=== PATIENT | male | born 1960 | race Hispanic/Latino ===

== ENCOUNTER 2018-04-15 14:54 | Inpatient (IN) ==
[2018-04-15] MEDS ORDERED: ONDANSETRON 4 MG/2 ML VIAL IVP ONE (15:26)
[2018-04-15] MEDS ORDERED: PANTOPRAZOLE IV 40 MG VIAL IVP ONE (15:26)
[2018-04-15] MEDS ORDERED: Sodium Chloride 0.9% 1,000 ML PRIMARY IV ONE ×2 (15:26→16:09)
[2018-04-15] MEDS ORDERED: HYDROmorphone 2 MG/1 ML IVP ONE (15:28)
[2018-04-15 15:53] LABS: BUN/CREATININE RATIO 19.37 (6-20); SERUM ALBUMIN 5.1 g/dL (3.5-4.8)
[2018-04-15 15:58] LABS: BASOPHILS # (AUTO) 0.02 10*3/UL; BASOPHILS % (AUTO) 0.1 % (0-1); EOSINOPHILS # (AUTO) 0 10*3/UL; EOSINOPHILS % (AUTO) 0 % (0-8); Hematocrit [HCT] 49.6 % (42.0-52.0); Hemoglobin [HGB] 17.4 g/dL (14.0-18.0); LYMPHOCYTES # (AUTO) 1.08 10*3/uL; MEAN CORPUSCULAR HEMOGLOBIN 28.9 PG (27-31); MEAN CORPUSCULAR HGB CONC 35.1 g/dL (33-37); MEAN CORPUSCULAR VOLUME 82.4 FL (80-90); MEAN PLATELET VOLUME 9.1 FL (7.4-12.2); MONOCYTES # (AUTO) 1.07 10*3/UL (0.3-0.8); MONOCYTES % (AUTO) 4.7 % (5-15); NEUTROPHILS # (AUTO) 20.44 10*3/UL; NEUTROPHILS % (AUTO) 89.9 % (50-80); RED BLOOD COUNT 6.02 10^6/uL (4.70-6.10)
[2018-04-15 16:24] LABS: PLATELET MORPHOLOGY COMMENT NORMAL MORPHOLOGY (NORM); RBC MORPHOLOGY COMMENT NORMAL MORPHOLOGY (NORM); WBC MORPHOLOGY COMMENT SEE COMMENTS (NORM)
[2018-04-15] MEDS ORDERED: Ertapenem Inj 1 GM in Sodium Chloride 0.9% 100 ML IV ONE (16:40)
--- NOTE | 2018-04-15 16:57 | DI ---
CT ABDOMEN SCAN WITHOUT IV CONTRAST, 04/15/2018 4:06 PM : Clinical History: Abdominal pain. Previous Exam: None at this facility. Scans are performed from the lower lung bases through the liver and kidneys without IV contrast. Sagi ttal and coronal reformatted images are generated. No oral or rectal contrast was ordered. Comment: This study was initially ordered with IV contrast but the patient's eGFR was 45 mL per minut e indicating significant renal impairment. The exam was changed to a study without IV contrast. The lung bases are clear. The liver is normal. The gallbladder is markedly contracted and grossly nor mal. There is enlargement of the head of the pancreas with inflammatory/infiltrative change surroundi ng the head. The body and tail of the pancreas are normal. Inflammatory/infiltrative change extends t oward the right lateral aspect of the abdomen and there is fluid in Morison this pouch. The second pa rt of the duodenum is abnormally distended and may actually show mucosal inflammatory change. Both ki dneys are normal in size, shape, position and contour. There is no hydronephrosis or hydroureter. No renal or ureteral calculi are present. There are no abnormal retrocrural or periaortic nodes. READIN. The pancreatic head is enlarged and shows peripancreatic inflammatory/infiltrative change. The linda dy and tail of the pancreas are normal. There are no pancreatic calcifications and there is no dilata tion of the pancreatic duct. Inflammatory/infiltrative change is associated with the duodenum and in the mesenteric fat surrounding the hepatic flexure. There is a small amount of fluid in Morison's doris ch and in the right gutter. The differential is between focal pancreatitis involving the head of the pancreas with associated inflammatory change of the duodenum versus a process in the duodenum such as a duodenal ulcer that eroded into the head of the pancreas causing focal pancreatitis. A mass within the head of the pancreas cannot entirely be excluded. 2. The remainder of the examination is normal. CT PELVIS SCAN WITHOUT IV CONTRAST, 04/15/2018 4:06 PM : Clinical History: See above. Previous Exam: None. Scans are performed from the inferior margin of the liver and kidneys to the symphysis pubis without IV contrast. Scans through the lower abdomen and pelvis show no masses or abnormal fluid collections. There is no adenopathy. The appendix is normal. The small bowel, terminal ileum, and ileocecal valve are normal. The colon is also normal. There is a very small umbilical hernia through which only mesenteric fat thomas s herniated. READING: Normal CT pelvis scan without IV contrast.
--- NOTE | 2018-04-15 18:15 | PDOC ---
HPI - History of Present Illness Date of Service: 04/15/18 Time of Service: 18:00 Chief Complaint: Abdominal pain and vomiting of one day duration History of Present Illness: This is a 58 years old male with medical history significant for history of hypertension and hyperlipidemia who came into the hospital with history of abdominal pain and vomiting that started today. The pain is severe felt in the mid abdomen and goes to the back. In addition he did vomit once. Because of the symptoms he came into the ER. Evaluation in the ER revealed pancreatitis was given fluids and was admitted. He feels better now compared to when he came in he rates his pain maybe 1 out of 10. He is not nauseated anymore. There is no history of diarrhea. He said he was feeling fine until today. Patient is a and he does understand Sinhala but the his daughter also is needed at times for translation. Past Medical History Medical History: 1. Hypertension. 2. Hyperlipidemia Surgical History: No surgeries before Family History: Reviewed an Not Pertinent Past Social History: He smokes few cigarettes a day, he said he used to drink and quit about 3 months ago and nothing since then. Denying drug usage. He lives in [place]. Tobacco Use: Light Tobacco Smoker Do you dip or chew tobacco: No In the Past 12 Months, Have Used or Abuse Any of the Following Substance: None Alcohol Use: None Medication / Allergies Home Medications: Home Medications 3 Medication Instructions Recorded Confirmed Type Aspirin 81 mg PO DAILY 04/15/18 04/15/18 History Lisinopril/Hydrochlorothiazide 1 tab PO DAILY 04/15/18 04/15/18 History [Lisinopril-Hctz 20-25 mg Tab] Simvastatin 20 mg PO DAILY 04/15/18 04/15/18 History Allergies/Adverse Reactions: Allergies 3 Allergy/AdvReac Type Severity Reaction Status Date / Time No Known Allergies Allergy Verified 04/15/18 15:07 Review of Systems - Review of Systems All Systems: Reviewed & No Additional Complaints Except as Stated Exam - Vitals Vital Signs: Vital Signs Temperature 97 F Temperature Source Temporal Artery Scan Pulse Rate [Pulse Oximeter 90 Left] Pulse Rate [Pulse Oximeter] 90 Respiratory Rate 20 Blood Pressure [Left Arm] 177/95 Blood Pressure [Left Arm] 177/95 Pulse Ox 97 Oxygen Delivery Method Room Air Height 5 ft 5 in Weight 150 lb - General General Appearance: No Acute Distress, Cooperative, Thin - Head Head Exam: Normal Inspection, Atraumatic - Eye Eye Exam: POSITIVE: Normal Appearance - ENT ENT Exam: POSITIVE: Normal Exam - Neck Neck Exam: Normal Inspection - Respiratory Respiratory Exam: POSITIVE: Clear to Auscultation - Bilaterally - Cardiovascular Cardiovascular Exam: POSITIVE: RRR - GI/Abdominal GI/Abdominal Exam: POSITIVE: Normal Bowel Sounds, Soft, No Organomegaly Additional GI/Abdominal Exam Details: Tenderness in the midepigastrium and right side of the abdomen. - Rectal Rectal Exam: POSITIVE: Deferred - External Exam: POSITIVE: Deferred Exam: POSITIVE: Deferred - Extremities Extremities Exam: POSITIVE: Normal Inspection - Back Back Exam: POSITIVE: Normal Inspection - Neurological Neurological Exam: POSITIVE: Alert, Oriented x 3, CN II-XII Intact, No Facial Droop, Speech Intact / Clear, Moves All Extremities Equally - Psychiatric Psychiatric Exam: POSITIVE: Normal Affect - Integumentary Integumentary Exam: POSITIVE: Normal Color Results - Labs CBC and BMP: 04/15/18 15:30 04/15/18 15:30 - Imaging Status: Report Reviewed by Me (Ct abdomen The pancreatic head is enlarged and shows peripancreatic inflammatory/infiltrative change. The body and tail of the pancreas are normal. There are no pancreatic calcifications and there is no dilatation of the pancreatic duct. Inflammatory/infiltrative change is associated with the duodenum and in the mesenteric fat surrounding the hepatic flexure. There is a small amount of fluid in Morison's pouch and in the right gutter. The differential is between focal pancreatitis involving the head of the pancreas with associated inflammatory change of the duodenum versus a process in the duodenum such as a duodenal ulcer that eroded into the head of the pancreas causing focal pancreatitis. A mass within the head of the pancreas cannot entirely be excluded.) Assessment and Plan - Patient Problems (1) Acute pancreatitis Current Visit: Yes Status: Acute Comment: This looks like an acute pancreatitis. Etiology is not clear. I think will put him on IV fluid, will put him on ice chips for now. Repeat his labs in the morning and will also order an ultrasound of his gallbladder. Did speak with the Dr. Ribera and he will have a look at him tomorrow. He did receive a dose of antibiotics will continue antibiotics until we have culture and US results. Code(s): K85.90 - Acute pancreatitis without necrosis or infection, unspecified (2) Hypertension Current Visit: Yes Status: Acute Comment: We'll see what his blood pressure tomorrow and then will decide if we continue with his blood pressure medications. Code(s): I10 - Essential (primary) hypertension (3) Leukocytosis Current Visit: Yes Status: Acute Comment: Probable reactive to acute pancreatitis. Will repeat it tomorrow. He was covered with antibiotics and he had blood culture taken. Code(s): D72.829 - Elevated white blood cell count, unspecified (4) Renal failure Current Visit: Yes Status: Acute Comment: Not sure whether this is acute or chronic, this may be secondary to the third spacing from the pancreatitis, he is on IV fluid repeat his labs in the morning and tonight. Code(s): N19 - Unspecified kidney failure
[2018-04-15] MEDS ORDERED: ONDANSETRON 4 MG/2 ML VIAL IVP PRN (18:53)
[2018-04-15] MEDS ORDERED: LIDOCAINE W/ SODIUM BICARB 0.5 ML SYR SUBD PRN (18:53)
[2018-04-15] MEDS ORDERED: Lactated Ringers 1,000 ML PRIMARY IV SCH (19:00)
[2018-04-15] MEDS: Sodium Chloride 0.9% 1,000 ML IV SCH (19:19)
[2018-04-15] MEDS: HYDROmorphone 2 MG/1 ML IVP PRN (20:41)
[2018-04-15 20:42] LABS: BILIRUBIN,URINE NEGATIVE (NEG); CLARITY,URINE CLEAR (CLEAR); COLOR,URINE YELLOW (Y); GLUCOSE, URINE (UA) NEGATIVE (NEG); OCCULT BLOOD,URINE SMALL (NEG); PH,URINE 5.5 (5.0-8.5); PROTEIN,URINE 100 mg/dl (NEG); UROBILINOGEN,URINE 0.2 EU/dL (0.2)
[2018-04-15 20:47] LABS: URINE SAMPLE TYPE VOIDED SPECIMEN
[2018-04-15 23:22] LABS: BUN/CREATININE RATIO 22.3 (6-20)
[2018-04-16] MEDS: ONDANSETRON 4 MG/2 ML VIAL IVP PRN ×2 (01:30→05:23)
[2018-04-16] MEDS: HYDROmorphone 2 MG/1 ML IVP PRN ×5 (01:30→19:37)
[2018-04-16] MEDS: Sodium Chloride 0.9% 1,000 ML IV SCH ×3 (04:41→19:45)
[2018-04-16 05:05] LABS: BASOPHILS # (AUTO) 0.01 10*3/UL; BASOPHILS % (AUTO) 0.1 % (0-1); EOSINOPHILS # (AUTO) 0.04 10*3/UL; EOSINOPHILS % (AUTO) 0.3 % (0-8); Hematocrit [HCT] 43.8 % (42.0-52.0); Hemoglobin [HGB] 15.3 g/dL (14.0-18.0); LYMPHOCYTES # (AUTO) 1.43 10*3/uL; MEAN CORPUSCULAR HEMOGLOBIN 29.3 PG (27-31); MEAN CORPUSCULAR HGB CONC 34.9 g/dL (33-37); MEAN CORPUSCULAR VOLUME 83.7 FL (80-90); MONOCYTES # (AUTO) 0.81 10*3/UL (0.3-0.8); MONOCYTES % (AUTO) 5.5 % (5-15); NEUTROPHILS # (AUTO) 12.28 10*3/UL; RED BLOOD COUNT 5.23 10^6/uL (4.70-6.10)
[2018-04-16 05:33] LABS: PLATELET MORPHOLOGY COMMENT NORMAL MORPHOLOGY (NORM); RBC MORPHOLOGY COMMENT NORMAL MORPHOLOGY (NORM); WBC MORPHOLOGY COMMENT NORMAL MORPHOLOGY (NORM)
[2018-04-16 05:48] LABS: BLOOD UREA NITROGEN 28 mg/dL (7-22); BUN/CREATININE RATIO 23.33 (6-20); SERUM ALBUMIN 3.6 g/dL (3.5-4.8)
--- NOTE | 2018-04-16 06:09 | PDOC ---
Abdomen/Flank HPI - General Chief Complaint: Abdomen Pain Stated Complaint: UPPER ADB PAIN Date Seen by Provider: 04/15/18 Time Seen by Provider: 15:20 Source: POSITIVE: Patient, Other (daughter) Exam Limitations: POSITIVE: No limitations Nurse's Notes Reviewed & Considered: Yes - History of Present Illness Initial Comments: The patient is a 58-year-old male. Since around 8 AM he has had paraumbilical abdominal pain and right-sided abdominal pain. He has one episode of vomiting. No past history of abdominal surgery. Patient speaks little [place], but his daughter interprets for us. No known fevers or chills. He's not had any alcohol for 2 or 3 months. No melena, hematochezia, hematemesis, dysuria, hematuria or diarrhea. Body Location Affected: REPORTS: Abdomen Timing: REPORTS: Gradual, Getting Worse Duration: 4-6 hours Severity: Moderate Quality: REPORTS: "Pain" Abdominal Pain Onset Location: REPORTS: RUQ, RLQ, Periumbilical Abdominal Pain Radiation: REPORTS: No radiation Context: REPORTS: None Modifying Factors: improves with: Vomiting (Times one) Associated Symptoms: REPORTS: Loss of Appetite, Nausea Similar Symptoms Previously: No Recent Care Received: REPORTS: Denies Any Prior Injuries Related to Current Complaint?: No - Patient Home Medications Home Medications: Home Medications Aspirin 81 mg PO DAILY 04/15/18 Lisinopril/Hydrochlorothiazide [Lisinopril-Hctz 20-25 mg Tab] 1 tab PO DAILY Simvastatin 20 mg PO DAILY 04/15/18 - Patient Allergies Allergies/Adverse Reactions: Allergies 3 Allergy/AdvReac Type Severity Reaction Status Date / Time No Known Allergies Allergy Verified 04/15/18 15:07 Past Medical History - heen HEENT History: Denies History Cardiovascular History: Hypertension Respiratory History: Denies History Gastrointestinal History: Denies History Genitourinary History: Denies History Endocrine History: Denies History Musculoskeletal History: Denies History Neurological History: TIA Blood Disorders: Denies History Psychiatric History: Denies History Male Reproductive History: Denies History Cancer History: Denies History In Past Year Been Physically Harmed or Verbally Threatened: No History of MDRO: No Tobacco Use: Light Tobacco Smoker In the Past 12 Months, Have Used or Abuse Any Substance: None Previous Surgical History: No Significant Family History: Diabetes, Hypertension Past Medical History Reviewed: Reviewed - No Changes ROS - Limitations ROS Limitations: Language Barrier Constitution: REPORTS: Denies Symptoms Cardiovascular: REPORTS: Denies Cardiac Symptoms Respiratory: REPORTS: Denies Resp Symptoms Neurological: REPORTS: Denies Neuro Symptoms Gastrointestinal: REPORTS: Abdominal Pain, Nausea, Vomitting Endocrine: REPORTS: Denies Symptoms Musculoskeletal: REPORTS: Denies MS Symptoms Genitourinary: REPORTS: Denies Symptoms Eyes: REPORTS: Denies Symptoms ENT: REPORTS: Denies Symptoms Skin: REPORTS: Denies Skin Symptoms Lympathic: REPORTS: Denies Lympathic Symptoms Immunologic: POSITIVE: Denies Symptoms Psychiatric: POSITIVE: Denies Psych Symptoms Abdominal/Flank Pain PE - General Appearance General Appearance: POSITIVE: Alert, Cooperative, No Evidence of Trauma, Moderate Distress. NEGATIVE: No Acute Distress - HEENT HEENT: POSITIVE: Head Inspection Nml, Eyes Inspection Nml, Ears Inspection Nml, Nose Inspection Nml, Oral/Dental Inspect. Nml, Pharynx Inspect. Nml, PERRL, EOMI - Neck Neck: POSITIVE: Normal Inspection, No Apparent Injury - Respiratory Respiratory: POSITIVE: No Respiratory Distress, Breath Sounds Normal, Chest Non- Tender - Cardiovascular Cardiovascular: POSITIVE: Regular Rate and Rhythm, Heart Sounds Normal, Equal Pulses, Strong Pulses Peripheral Pulses: Radial (R): 2+, Radial (L): 2+ - Chest Chest: POSITIVE: Non Tender - Abdomen Abdomen: Soft: (All Quadrants), Normal Bowel Sounds: (All Quadrants), No Splenomegaly: (All Quadrants), No Hepatomegaly: (All Quadrants), No Guarding: ( All Quadrants), No Rebound: (All Quadrants), No Palpable Pulse: (All Quadrants) , No Palpabale Mass: (All Quadrants), No Distention: (All Quadrants), No Rigidity: (All Quadrants), Tenderness Noted: (All Quadrants) Additional Abdominal Details: Abdominal examination shows bowel sounds to be present but depressed. Patient has poorly localized abdominal discomfort over the paraumbilical area and right upper quadrant and right lower quadrant. No masses, organomegaly or rebound. - Back Back: POSITIVE: Normal Inspection. 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 Appendix normal. Lab Results Reviewed by Me: Yes (amylase 618, amylase 9360) CBC and BMP: 04/16/18 04:43 04/16/18 04:43 Lab Results:: Laboratory Results 3 04/15/18 04/15/18 04/15/18 15:30 15:30 15:30 WBC 22.72 H RBC 6.02 Hgb 17.4 Hct 49.6 MCV 82.4 MCH 28.9 MCHC 35.1 RDW Std Deviation 39.1 RDW Coeff of Kassie 13.2 Plt Count 379 H MPV 9.1 Immature Gran % (Auto) 0.5 Neut % (Auto) 89.9 H Lymph % (Auto) 4.8 L [place] % (Auto) 4.7 L Eos % (Auto) 0 Baso % (Auto) 0.1 Immature Gran # (Auto) 0.11 Neut # (Auto) 20.44 Lymph # (Auto) 1.08 [place] # (Auto) 1.07 H Eos # (Auto) 0 Baso # (Auto) 0.02 WBC Morphology Comment See comments Plt Morphology Comment Normal morphology RBC Morph Comment Normal morphology Sodium 138 Potassium 4.8 Chloride 98 Carbon Dioxide 22 L Anion Gap 18 BUN 31 H Creatinine 1.6 H Estimated GFR 45 BUN/Creatinine Ratio 19.37 Glucose 182 H Calculated Osmolality 297.0 H Lactic Acid 3.7 H Calcium 10.1 Total Bilirubin 0.7 AST 35 ALT 53 Alkaline Phosphatase 114 Total Protein 8.7 H Albumin 5.1 H Globulin 3.6 Albumin/Globulin Ratio 1.40 Amylase 618 H Lipase 9360 H* - Patient's Progress Pain Medication Addressed: POSITIVE: Yes (Patient given Dilaudid, 2 mg IV) School/Work Release Addressed: POSITIVE: Not Applicable Re-examine Time: 17:55 Re-Examine Comment: Diagnosis discussed with patient and his daughter. Case discussed with hospitalist and patient admitted for further evaluation and treatment. Patient given Dilaudid for pain in the emergency room and Zofran for nausea and was given a liter of normal saline IV Status: POSITIVE: Improved, Re-Examined (Pain lasts on admission) - Consult Consult (If Yes, Name of Consulting MD & Time Called): Yes (Dr. Leblanc, hospitalist, [id number]) Consulting MD will see pt:: [place] [facility] [place] Counseled: POSITIVE: Patient, Family, RE: Lab Results, RE: Radiology Results, RE : DX, RE: Need for F/U Patient Care Time - Estimated PCT Patient Care Time (In Minutes): 60 Vital Signs - VS Reviewed Vital Signs Reviewed: Yes Discharge Clinical Impression: Acute pancreatitis Discharge Disposition: Admit to Inpatient Condition: Fair Date Decision to Admit to Inpatient: 04/15/18 Time Decision to Admit to Inpatient: 17:30
[2018-04-16 06:29] LABS: LIPASE 14262 IU/L (23-300)
--- NOTE | 2018-04-16 08:51 | PDOC(PROG) ---
Date and Time of Service: 04/16/2000 8T 9:11 AM Interval History: Subjective He thinks his pain is less than yesterday. No more vomiting. Still feel it in the epigastric area and goes to the back. Nursing staff Lisa helped with the translation. Objective : Data - Labs CBC and BMP: 04/16/18 04:43 04/16/18 04:43 Objective : Exam - General General Appearance: No Acute Distress, Cooperative - Head Head Exam: Normal Inspection - Eye Eye Exam: Normal Appearance - ENT ENT Exam: Normal Exam - Neck Neck Exam: Normal Inspection - Respiratory Respiratory Exam: Clear to Auscultation - Bilaterally - Cardiovascular Cardiovascular Exam: RRR - GI/Abdominal GI/Abdominal Exam: Normal Bowel Sounds, Non Distended, Soft, No Organomegaly Additional GI/Abdominal Exam Details: Still epigastric tenderness present its mild no rebound. - Rectal Rectal Exam: Deferred - External Exam: Deferred - Extremities Extremities Exam: Normal Inspection - Back Back Exam: Normal Inspection - Neurological Neurological Exam: Alert, Oriented x 3, CN II-XII Intact, No Facial Droop, Speech Intact / Clear, Moves All Extremities Equally - Psychiatric Psychiatric Exam: Normal Affect - Integumentary Integumentary Exam: Normal Color Assessment and Plan - Patient Problems (1) Acute pancreatitis Current Visit: Yes Status: Acute Comment: Continue current management with IV fluid, pain medication and antiemetics. He will have an ultrasound of his abdomen today. I'll discuss it with Dr. Ribera after the ultrasound we may give him a trial of clear liquid as he is very thirsty and hungry. I did tell him though that if there is worsening of his symptoms will stop. His lipase did go up today. Repeat it tomorrow. Code(s): K85.90 - Acute pancreatitis without necrosis or infection, unspecified (2) Hypertension Current Visit: Yes Status: Acute Comment: We'll continue holding his blood pressure med Code(s): I10 - Essential (primary) hypertension (3) Leukocytosis Current Visit: Yes Status: Acute Comment: This is coming down maybe reactionary and secondary to the pancreatitis. Continue antibiotics for another day. Code(s): D72.829 - Elevated white blood cell count, unspecified (4) Renal failure Current Visit: Yes Status: Acute Comment: Creatinine improved, repeat it tomorrow. Code(s): N19 - Unspecified kidney failure
--- NOTE | 2018-04-16 10:28 | DI ---
GALLBLADDER AND LIVER ULTRASOUND, 04/16/2018 8:00 AM: Clinical History: Pancreatitis. Previous Exam: None at this facility. Technique: Scans are performed through the right upper quadrant in multiple projections. The gallbladder is contracted and difficult to visualize in its entirety. There are multiple bright e choes with decreased through transmission probably representing gallstones. The common bile duct is n ot visualized. The pancreas is visualized only from body and a portion of the tail is normal. The hea d of the pancreas is obscured by gas. The visualized portions of the liver, right kidney, and IVC are normal. : The proximal aorta is visualized and is normal. There is free fluid in Morison's pouch. Readin. There is a structure that is consistent with the contracted gallbladder filled with stones. Howev er, we do not identify any fluid associated with this structure that would make the diagnosis of a co ntracted gallbladder absolute. Either a repeat gallbladder ultrasound in 24 hours is recommended or c onsider an MRI scan of the biliary tree. Because of the language difficulty, an MRI scan may be techn ically more difficult. 2. The liver, right kidney, IVC, and limited views of the aorta are normal. 3. There is free fluid in Morison's pouch.
[2018-04-16] MEDS: PANTOPRAZOLE IV 40 MG VIAL IVP SCH (10:53)
--- NOTE | 2018-04-16 12:59 | CONSULT ---
Consult Note - Consult Consult Date: 04/16/18 Reason for Consult: PreOp Consulation : General Surgery Requesting Physician: Dr. Leblanc Primary Care Provider: NONE NONE - History of Present Illness History of Present Illness: This is a 50-year-old gentleman who has a one-day history of epigastric abdominal pain. Patient came in an elevated lipase around 7000. His count of 14,000 since admission. Patient states that he feels better but he still having epigastric tenderness. Patient had a CT scan that showed inflammation the head of the pancreas but no dominant mass. Ultrasound showed cholelithiasis with a contracted gallbladder. Issues white count was 22,000 now down to 14,000. Review of Systems - Review of Systems All Systems: Reviewed & No Additional Complaints Except as Stated Past Medical History Medical History: 1. Hypertension. 2. Hyperlipidemia Surgical History: No surgeries before Family History: Reviewed an Not Pertinent Past Social History: He smokes few cigarettes a day, he said he used to drink and quit about 3 months ago and nothing since then. Denying drug usage. He lives in [place]. Tobacco Use: Light Tobacco Smoker Do you dip or chew tobacco: No In the Past 12 Months, Have Used or Abuse Any of the Following Substance: None Alcohol Use: None Medication / Allergies Home Medications: Home Medications 3 Medication Instructions Recorded Confirmed Type Aspirin 81 mg PO DAILY 04/15/18 04/15/18 History Lisinopril/Hydrochlorothiazide 1 tab PO DAILY 04/15/18 04/15/18 History [Lisinopril-Hctz 20-25 mg Tab] Simvastatin 20 mg PO DAILY 04/15/18 04/15/18 History Allergies/Adverse Reactions: Allergies 3 Allergy/AdvReac Type Severity Reaction Status Date / Time No Known Allergies Allergy Verified 04/15/18 15:07 Results - Labs CBC and BMP: 04/16/18 04:43 04/16/18 04:43 Exam - Vitals Vital Signs: Vital Signs Temperature 98.4 F Temperature Source Temporal Artery Scan Pulse Rate [Pulse Oximeter 88 Left] Pulse Rate [Pulse Oximeter] 95 Pulse Rate 86 Respiratory Rate 16 Blood Pressure [Left Arm] 141/83 Blood Pressure [Left Arm] 177/95 Blood Pressure 155/96 Pulse Ox 96 Oxygen Delivery Method Room Air Height 5 ft 5 in Weight 144 lb 11.2 oz - General General Appearance: No Acute Distress, Cooperative - Head Head Exam: Normocephalic - Eye Eye Exam: POSITIVE: PERRL - Respiratory Respiratory Exam: POSITIVE: Clear to Auscultation - Bilaterally - GI/Abdominal Additional GI/Abdominal Exam Details: Patient is epigastric abdominal tenderness no rebound or rigidity. Assessment and Plan - Patient Problems (1) Acute gallstone pancreatitis Current Visit: Yes Status: Acute Code(s): K85.10 - Biliary acute pancreatitis without necrosis or infection - Assessment / Plan Additional Assessment/Plan Details: At this point recommend continue with nothing by mouth and IV fluids. He needs to resolve his pancreatitis before he can have a left cholelithiasis see. This is explained to him through his daughter who acted as an full time staff interpreter. I would recommend the patient having a laparoscopic cholecystectomy. I have discussed the pathophysiology about gallstones and gallbladder disease. I have discussed the risk of surgery and the potential complications that could occur with the surgery. I also discussed alternative treatment options. I have gone over the surgical technique with the patient. The patient understands this information. I also discussed the difference between single site using the da August surgery and also the traditional laparoscopic surgery. The patient be scheduled at the first available date. Questions that the patient had were answered. CPT 40377
[2018-04-16] MEDS: Ertapenem Inj 1 GM in Sodium Chloride 0.9% 100 ML IV SCH (18:35)
[2018-04-17] MEDS: HYDROmorphone 2 MG/1 ML IVP PRN ×6 (01:27→22:49)
[2018-04-17] MEDS: Sodium Chloride 0.9% 1,000 ML IV SCH ×3 (04:05→22:49)
[2018-04-17 05:11] LABS: BASOPHILS # (AUTO) 0.02 10*3/UL; BASOPHILS % (AUTO) 0.1 % (0-1); EOSINOPHILS # (AUTO) 0.01 10*3/UL; EOSINOPHILS % (AUTO) 0 % (0-8); Hematocrit [HCT] 41.7 % (42.0-52.0); Hemoglobin [HGB] 14.4 g/dL (14.0-18.0); LYMPHOCYTES # (AUTO) 1.46 10*3/uL; MEAN CORPUSCULAR HEMOGLOBIN 29.4 PG (27-31); MEAN CORPUSCULAR HGB CONC 34.5 g/dL (33-37); MEAN CORPUSCULAR VOLUME 85.3 FL (80-90); MEAN PLATELET VOLUME 9.5 FL (7.4-12.2); MONOCYTES # (AUTO) 1.29 10*3/UL (0.3-0.8); MONOCYTES % (AUTO) 5.9 % (5-15); NEUTROPHILS # (AUTO) 19.07 10*3/UL; NEUTROPHILS % (AUTO) 86.9 % (50-80); RED BLOOD COUNT 4.89 10^6/uL (4.70-6.10)
[2018-04-17 05:38] LABS: PLATELET MORPHOLOGY COMMENT NORMAL MORPHOLOGY (NORM); RBC MORPHOLOGY COMMENT NORMAL MORPHOLOGY (NORM); WBC MORPHOLOGY COMMENT NORMAL MORPHOLOGY (NORM)
[2018-04-17 05:56] LABS: BLOOD UREA NITROGEN 19 mg/dL (7-22); BUN/CREATININE RATIO 17.27 (6-20)
[2018-04-17 06:23] LABS: LIPASE 3746 IU/L (23-300)
--- NOTE | 2018-04-17 07:52 | PDOC(PROG) ---
Date and Time of Service: 04/17/2018 7:45 AM Interval History: Subjective The Patient said that he feels better his pain seemed to be less than before. No more nausea. Still though getting his IV pain medication every 4 hours. He is hungry. Nursing staff Gemini helped with translation Objective : Data - Labs CBC and BMP: 04/17/18 04:09 04/17/18 04:09 Objective : Exam - General General Appearance: No Acute Distress, Cooperative - Head Head Exam: Normal Inspection - Eye Eye Exam: Normal Appearance - Neck Neck Exam: Normal Inspection - Respiratory Respiratory Exam: Clear to Auscultation - Bilaterally - Cardiovascular Cardiovascular Exam: RRR - GI/Abdominal GI/Abdominal Exam: Normal Bowel Sounds, Non Distended, Soft, No Organomegaly Additional GI/Abdominal Exam Details: There is tenderness in the epigastrium still present. - Rectal Rectal Exam: Deferred - External Exam: Deferred Exam: Deferred - Extremities Extremities Exam: Normal Inspection - Back Back Exam: Normal Inspection - Neurological Neurological Exam: Alert, Oriented x 3, Normal Gait, CN II-XII Intact, Speech Intact / Clear, Moves All Extremities Equally - Psychiatric Psychiatric Exam: Normal Affect Assessment and Plan - Patient Problems (1) Acute pancreatitis Current Visit: Yes Status: Acute Comment: His lipase and amylase are down today compared to yesterday. Continue IV fluid but will cut back on the fluid. Continue pain and anti-emetics medications. His bilirubin is slightly higher than yesterday. We'll check whether it's direct or indirect. Maybe this is indirect from fasting Code(s): K85.90 - Acute pancreatitis without necrosis or infection, unspecified (2) Hypertension Current Visit: Yes Status: Acute Comment: We'll see what his blood pressure during the day and then decide about restarting his blood pressure medications. Code(s): I10 - Essential (primary) hypertension (3) Leukocytosis Current Visit: Yes Status: Acute Comment: White count is higher unclear reason. He is on antibiotics. Will discuss with the radiologist about the optimal imaging test MRCP versus CT. Code(s): D72.829 - Elevated white blood cell count, unspecified (4) Renal failure Current Visit: Yes Status: Acute Comment: This is resolved Code(s): N19 - Unspecified kidney failure
[2018-04-17] MEDS: PANTOPRAZOLE IV 40 MG VIAL IVP SCH (08:40)
[2018-04-17] MEDS ORDERED: LISINOPRIL 10 MG TABLET PO SCH (09:00)
--- NOTE | 2018-04-17 15:14 | DI ---
MRI ABDOMEN WITHOUT AND WITH IV CONTRAST, 04/17/2018 8:04 AM: Clinical History: Acute pancreatitis. Previous Exam: None at this facility. Axial and coronal breath hold T2 weighted and T2 weighted fat sat; axial T1 weighted and breath-hold in and out of phase; coronal breath hold SSFP; MRCP T2 weighted thick sequence; postcontrast axial an d coronal fat-saturated T1-weighted. Contrast Dose: 13 mL of ProHance (279.3 mg/mL). The gallbladder is contracted and contains gallstones. 7 mm and the left intrahepatic duct is prefere ntially dilated over the right duct, and the common bile duct measures 7 mm. No gallstones are seen i n the common hepatic duct or the common bile duct except at the very tip proximal to the sphincter of Oddie. At that point, there is suggestion of a meniscus sign of filling defect that may represent a small stone. The pancreatic duct is normal in appearance and is not dilated. The head of the pancreas is mildly enlarged and the neck, body, and tail of the pancreas are normal. Following contrast, no a bnormally enhancing lesion is identified, but there are some motion artifacts. The liver, spleen, and both kidneys are normal. There is fluid infiltrating into the right perinephric fat and surrounding the right kidney. There is free fluid in the right gutter and between the dome of the diaphragm and t he liver. Fluid in the right retroperitoneal space has dissected posteriorly and laterally to surroun d the quadratus lumborum and into the potential space between the properitoneal fat and the transvers us abdominis muscle fascia. Readin. There is enlargement of the head of the pancreas without a definite mass being identified, consis tent with acute pancreatitis. Followup with a CT scan without and with IV contrast and with oral cont rast is recommended when the patient has completely recovered. 2. There is fluid in the right gutter as well as in the retroperitoneal space. 3. Cholelithiasis with a dilated common duct most likely secondary to a small stone in the distal co mmon bile duct. The pancreatic duct is normal.
[2018-04-17] MEDS: Ertapenem Inj 1 GM in Sodium Chloride 0.9% 100 ML IV SCH (18:42)
[2018-04-18] MEDS: HYDROmorphone 2 MG/1 ML IVP PRN ×6 (02:45→20:35)
[2018-04-18] MEDS: Sodium Chloride 0.9% 1,000 ML IV SCH (07:09)
[2018-04-18 07:12] LABS: BLOOD UREA NITROGEN 13 mg/dL (7-22); BUN/CREATININE RATIO 16.25 (6-20); LIPASE 395 IU/L (23-300); SERUM ALBUMIN 3.1 g/dL (3.5-4.8)
[2018-04-18 07:14] LABS: BASOPHILS # (AUTO) 0.01 10*3/UL; BASOPHILS % (AUTO) 0 % (0-1); EOSINOPHILS # (AUTO) 0.11 10*3/UL; EOSINOPHILS % (AUTO) 0.5 % (0-8); Hematocrit [HCT] 38.2 % (42.0-52.0); Hemoglobin [HGB] 13.1 g/dL (14.0-18.0); LYMPHOCYTES # (AUTO) 1.42 10*3/uL; MEAN CORPUSCULAR HGB CONC 34.3 g/dL (33-37); MEAN CORPUSCULAR VOLUME 84.7 FL (80-90); MEAN PLATELET VOLUME 9.1 FL (7.4-12.2); MONOCYTES # (AUTO) 1.66 10*3/UL (0.3-0.8); MONOCYTES % (AUTO) 8.1 % (5-15); NEUTROPHILS # (AUTO) 17.11 10*3/UL; NEUTROPHILS % (AUTO) 84.1 % (50-80); RED BLOOD COUNT 4.51 10^6/uL (4.70-6.10)
[2018-04-18 07:30] LABS: PLATELET MORPHOLOGY COMMENT NORMAL MORPHOLOGY (NORM); RBC MORPHOLOGY COMMENT NORMAL MORPHOLOGY (NORM); WBC MORPHOLOGY COMMENT NORMAL MORPHOLOGY (NORM)
--- NOTE | 2018-04-18 08:24 | PDOC(PROG) ---
Date and Time of Service: 04/18/2018 8:24 AM Interval History: Subjective Patient feels a lot better, he said he has pain sometimes when he coughs but it is not like as bad as when he came in. He said like he made more than 70% improvement. There is no vomiting. He tolerated the clear liquid diet. For the first time he mentioned that he had mini stroke according to him and his daughter about 2 months ago ended up in the hospital in [place]. Based on the description he had vomiting and headache and had some balance issues but there was no weakness there was no speech difficulty and he seemed to recover from it. Objective : Data - Labs CBC and BMP: 04/18/18 06:50 04/18/18 06:50 Objective : Exam - General General Appearance: No Acute Distress, Cooperative - Head Head Exam: Normal Inspection - Eye Eye Exam: Normal Appearance - ENT ENT Exam: Normal Exam - Neck Neck Exam: Normal Inspection - Respiratory Respiratory Exam: Clear to Auscultation - Bilaterally - Cardiovascular Cardiovascular Exam: RRR - GI/Abdominal GI/Abdominal Exam: Normal Bowel Sounds, Non Distended, Soft, No Organomegaly Additional GI/Abdominal Exam Details: Still tenderness in the mid epigastrium present. - Rectal Rectal Exam: Deferred - External Exam: Deferred Exam: Deferred - Extremities Extremities Exam: Normal Inspection - Back Back Exam: Normal Inspection - Neurological Neurological Exam: Alert, Oriented x 3, CN II-XII Intact, No Facial Droop, Speech Intact / Clear, Moves All Extremities Equally - Psychiatric Psychiatric Exam: Normal Affect Assessment and Plan - Patient Problems (1) Acute pancreatitis Current Visit: Yes Status: Acute Comment: This looks like gallstone pancreatitis. The MRI that he had yesterday showed enlargement of the head of the pancreas without definite mass being identified. There is fluid in the right gutter as well as in the retroperitoneal space. It did show cholelithiasis with a dilated common duct there is question of for a small stone in the dilated common bile duct. There is no clinical jaundice is though. So if there is obstruction it does not seem that he has cholangitis and it's likely incomplete as the elevated bilirubin is indirect than direct. He needs a cholecystectomy to prevent risk of recurrence. For the first time they mentioned that he had a history of "mini stroke" not sure whether this is accurate we'll try to get records from the [facility]. I did explain to him that if it is true that he had a stroke than he is at higher risk of having another stroke as a result of surgery and he understands the risk and is willing to have the surgery. Nurse Sherron was present also his daughter was present. Code(s): K85.90 - Acute pancreatitis without necrosis or infection, unspecified (2) Hypertension Current Visit: Yes Status: Acute Comment: we have Been holding his blood pressure medication because he was dehydrated blood pressure is coming up. We'll probably restart later on if he has surgery will be after the surgery. Code(s): I10 - Essential (primary) hypertension (3) Leukocytosis Current Visit: Yes Status: Acute Comment: Not clear whether has a cholecystitis also or this is secondary to the pancreatitis itself. Blood culture so far are negative. Code(s): D72.829 - Elevated white blood cell count, unspecified (4) Renal failure Current Visit: Yes Status: Acute Comment: This is resolved Code(s): N19 - Unspecified kidney failure (5) Hypokalemia Current Visit: Yes Status: Acute Comment: We'll replace his potassium Code(s): E87.6 - Hypokalemia
[2018-04-18] MEDS: PANTOPRAZOLE IV 40 MG VIAL IVP SCH (08:32)
[2018-04-18] MEDS ORDERED: Iothalamate Meglumine 30 ML VIAL IV ONE (08:49)
[2018-04-18] MEDS ORDERED: Sodium Chloride 0.9% vial 30 ML ONE (08:49)
[2018-04-18] MEDS ORDERED: BUPIVACAINE 0.25% W/ EPI - 10 ML VIAL ONE (08:49)
--- NOTE | 2018-04-18 08:54 | EKG ---
[address] [address] Measurements Intervals [place] Rate: 94 P: 18 LA: 146 QRS: 45 QRSD: 94 T: 37 QT: 341 QTc: 393 Interpretive Statements SINUS RHYTHM No previous ECG available for comparison Electronically Signed On 04-20-18 17:34:09 MDT by Brent Best [email or web address]
--- NOTE | 2018-04-18 08:55 | PDOC(PROG) ---
Date and Time of Service: 04/18/2018 Interval History: Patient states that his abdominal pain is getting better. He like to proceed with surgery. Objective : Data - Labs CBC and BMP: 04/18/18 06:50 04/18/18 06:50 - Vital Signs Vital Signs and I&O: Vital Signs - Last Taken Temperature 98.6 F 04/18/18 08:38 Pulse Rate 97 04/18/18 08:38 Respiratory Rate 14 04/18/18 08:38 Blood Pressure 149/86 04/18/18 08:38 Pulse Ox 92 04/18/18 08:38 Intake and Output (24hr x 4 totals) 04/16/18 04/17/18 04/18/18 04/19/18 05:59 05:59 05:59 05:59 Intake Total 1100 / 1100 2964 / 2964 2577 / 2577 Output Total 125 / 125 425 / 425 450 / 450 Balance 1100 / 1100 2839 / 2839 2152 / 2152 -450 / -450 Objective : Exam - GI/Abdominal GI/Abdominal Exam: Non Tender, Non Distended Assessment and Plan - Patient Problems (1) Acute gallstone pancreatitis Current Visit: Yes Status: Acute Code(s): K85.10 - Biliary acute pancreatitis without necrosis or infection - Assessment / Plan Additional Assessment/Plan Details: Gallstone pancreatitis. Patient had an MRI that showed no evidence of choledocholithiasis but he did have cholelithiasis. There is no mass in head of the pancreas. There may have been a meniscus sign at the sphincter jared. He is in his daughter as rotary adjuster did explain surgery to him. He does understand the potential risk. He wants proceed with surgery.
[2018-04-18] MEDS ORDERED: Lactated Ringers 1,000 ML PRIMARY IV SCH ×2 (09:30→10:15)
[2018-04-18] MEDS ORDERED: MIDAZOLAM 5 MG/1 ML ONE (09:52)
[2018-04-18] MEDS ORDERED: KETAMINE 100 MG/1 ML - 5 ML ONE (09:52)
[2018-04-18] MEDS ORDERED: fentaNYL Inj 250 MCG/5 ML VIAL ONE (09:52)
[2018-04-18] MEDS ORDERED: PROPOFOL 10 MG/1 ML (200 MG/20 ML) VIAL IV ONE (09:52)
[2018-04-18] MEDS ORDERED: ROCURONIUM 10 MG/1 ML - 5 ML VIAL IVP ONE (09:54)
[2018-04-18] MEDS ORDERED: Sodium Chloride 0.9% vial 10 ML ONE (09:55)
[2018-04-18] MEDS ORDERED: LIDOCAINE MPF 2% - 5 ML (20 MG/1 ML) ONE (09:57)
[2018-04-18] MEDS ORDERED: ONDANSETRON 4 MG/2 ML VIAL IVP PRN (10:04)
[2018-04-18] MEDS ORDERED: fentaNYL Inj 100 MCG/2 ML VIAL IVP PRN (10:04)
[2018-04-18] MEDS ORDERED: LIDOCAINE W/ SODIUM BICARB 0.5 ML SYR SUBD PRN (10:04)
[2018-04-18] MEDS ORDERED: ATROPINE SULFATE 0.4 MG/1 ML VIAL IVP PRN (10:04)
--- NOTE | 2018-04-18 10:05 | CRNA.PROGR ---
Anesthesia Recovery Phase I - Post Anesthesia Evaluation Patient's Condition on Arrival in Phase I: Stable Patient's Condition on Arrival in Phase II: Stable Pain Level: 5
--- NOTE | 2018-04-18 10:05 | CRNA.PROGR ---
Anesthesia Time - - Start date: 04/18/18 End date: 04/18/18 - Procedure/Recovery Time Anesthesia : Time In: 10:31 Anesthesia : Time Out: 12:29 Anesthesia : Total Time: 118 - Total Anesthesia Time Total Anesthesia Time (minutes): 118 - Other Weight: 67.721 kg Height: 5 ft 5 in Body Mass Index (BMI): 24.8 Physical Status: P3 (Very recent gallstone pancreatitis. htn, increased lipids.) Anesthesia Type: General Anesthesia : ET
--- NOTE | 2018-04-18 10:06 | CRNA.PROGR ---
Post Anesthesia Phase II - Post Anesthesia Phase II Patient Stable and Discharged To: Phase II Care Assumed By Surgeon: Jaylan Ribera MD Temperature: 98.6 F Pulse Rate: 86 Respiratory Rate: 14 Blood Pressure: 155/96 Pulse Ox: 92
[2018-04-18] MEDS ORDERED: fentaNYL Inj 100 MCG/2 ML VIAL ONE (11:06)
[2018-04-18] MEDS ORDERED: Lactated Ringers 1,000 ML PRIMARY IV ONE (11:37)
[2018-04-18] MEDS ORDERED: DEXAMETHASONE PF 10 MG/1 ML VIAL ONE (11:37)
[2018-04-18] MEDS ORDERED: GLYCOPYRROLATE 0.2 MG/1 ML VIAL ONE (12:06)
[2018-04-18] MEDS ORDERED: NEOSTIGMINE 1 MG/1 ML - 10 ML ONE (12:06)
[2018-04-18] MEDS ORDERED: HYDROmorphone 2 MG/1 ML ONE (12:38)
--- NOTE | 2018-04-18 14:02 | GEN.OPNOTE ---
Operative Note Surgery Date: 04/18/18 Preoperative Diagnosis: Gallstone pancreatitis Postoperative Diagnosis: Gallstone pancreatitis Procedure: Laparoscopic cholecystectomy with intraoperative cholangiogram Surgeon: Michael Ribera MD Wharf Operator: Tony Cardoso MD Anesthesia Provider: Vanessa Harley CRNA Anesthesia Type: General Estimated Blood Loss (mL): 50 Fluids: Lactated Ringer's please see anesthesia notes in EMR Pathology: Gallbladder sent Indications: Patient comes in with acute exacerbation pancreatitis. He has known cholelithiasis. Therefore his Arias had gallstone pancreatitis. Patient had a persistently elevated white count therefore he is placed on antibiotics like he had acute cholecystitis even though no imaging study showed any cholecystitis. He had a contracted gallbladder seen on CT scan ultrasound and MRI Findings: Patient had a contracted gallbladder with areas of necrosis. Intraoperative cholangiogram showed no evidence of duct obstruction. The collecting he had a small accessory duct going to the right lobe of the liver from the common hepatic duct Complications: None Operative Summary: Patient is vital operant. Placed supine position. Given general trach anesthesia. Patient was prepped draped sterile fashion. Timeout performed per protocols. I then infiltrated quarter percent Marcaine at each incision site. Many small incision below the umbilicus. Placed the Verres needle into the abdominal cavity. Obtained a pneumoperitoneum. After an adequate pneumoperitoneum I placed the 10 mm trocar using the Visiport. I then placed remainder ports of 10 mm trocar subxiphoid under direct visualization 25 mm ports placed in the midaxillary midclavicular line all these with the stab incision. Appropriate station his stay. Patient had dense adhesions of omentum to gallbladder which were carefully taken down. Patient had had necrosis of the fundus of the gallbladder. This did allow some stones a spill out of the gallbladder. These were carefully picked up with stone forceps. We then were able to grass Eller's pouch. We dissected out the cystic duct. Put a Hemoclip up against the gallbladder itself. Opened up the cystic duct and placed a catheter in at an intraoperative cholangiogram was then performed using fluoroscopy. It showed no evidence of obstruction or common duct stones. There was a small a barium branch of the bile duct, not the common hepatic going to the right lobe of the liver. We then dissect out what appeared to be the cystic artery and put a clip on this. We then dissected the gallbladder off the gallbladder fossa using both electrocautery and blunt dissection. Gallbladder is placed in Endobag and then brought out through the sub-umbilicus incision. I closed the fascia with 0 Vicryl suture. We then reinsufflated pneumoperitoneum visual inspected gallbladder fossa there is no active bleeding or bile leaks. No additional stones were encountered. We then deinsufflated pneumoperitoneum. All counts were correct at this point. We removed all trochars. There is only small fascial defects on the fascia so they were not closed. Closed the skin with 4-0 Vicryl simple interrupted subcutaneous stitches. Patient transferred to recovery room in stable condition. Patient Problems - Patient Problem List (1) Acute gallstone pancreatitis Current Visit: Yes Status: Acute Code(s): K85.10 - Biliary acute pancreatitis without necrosis or infection Category: Medical Procedure Codes - Surgical Procedures Primary Surgical Procedure: [id number] : Cholecsytectomy w/Cholangiograph
[2018-04-18] MEDS: Ertapenem Inj 1 GM in Sodium Chloride 0.9% 100 ML IV SCH (20:30)
--- NOTE | 2018-04-18 20:37 | DI ---
OPERATIVE CHOLANGIOGRAM, 04/18/2018 10:30 AM : Clinical History: Cholelithiasis. Pancreatitis. 4 pounds are submitted. Contrast is present on all films with reflux into the duodenum. There is no r etained stone in the dilated common hepatic or common bile ducts. The visualized portions of the intr ahepatic biliary tree are normal. The balloon catheter is directed into the common hepatic duct. Ther e is no evidence of a distal common bile stone as was suspected on the MR cholangiogram. Reading: Normal operative cholangiogram. There is no evidence of a common duct stone.
[2018-04-19] MEDS: HYDROmorphone 2 MG/1 ML IVP PRN (04:32)
[2018-04-19 04:48] LABS: BASOPHILS # (AUTO) 0.02 10*3/UL; BASOPHILS % (AUTO) 0.1 % (0-1); EOSINOPHILS # (AUTO) 0 10*3/UL; EOSINOPHILS % (AUTO) 0 % (0-8); Hematocrit [HCT] 36.7 % (42.0-52.0); LYMPHOCYTES # (AUTO) 0.84 10*3/uL; MEAN CORPUSCULAR HEMOGLOBIN 29.4 PG (27-31); MEAN CORPUSCULAR HGB CONC 35.4 g/dL (33-37); MEAN PLATELET VOLUME 9.1 FL (7.4-12.2); MONOCYTES # (AUTO) 1.13 10*3/UL (0.3-0.8); MONOCYTES % (AUTO) 6.2 % (5-15); NEUTROPHILS # (AUTO) 16.05 10*3/UL; NEUTROPHILS % (AUTO) 88.7 % (50-80); RED BLOOD COUNT 4.42 10^6/uL (4.70-6.10)
[2018-04-19 04:55] LABS: BLOOD UREA NITROGEN 17 mg/dL (7-22); BUN/CREATININE RATIO 21.25 (6-20); LIPASE 163 IU/L (23-300); SERUM ALBUMIN 3.1 g/dL (3.5-4.8)
[2018-04-19 06:04] LABS: PLATELET MORPHOLOGY COMMENT NORMAL MORPHOLOGY (NORM); RBC MORPHOLOGY COMMENT NORMAL MORPHOLOGY (NORM); WBC MORPHOLOGY COMMENT NORMAL MORPHOLOGY (NORM)
--- NOTE | 2018-04-19 07:42 | PDOC(PROG) ---
Date and Time of Service: 04/19/2018 7:39 AM Interval History: Subjective Patient feels better denying significant pain. No nausea. He didn't eat much yesterday only Jell-O. I encouraged him to eat. Objective : Data - Labs CBC and BMP: 04/19/18 04:34 04/19/18 04:34 Objective : Exam - Head Head Exam: Normal Inspection - Eye Eye Exam: Normal Appearance - ENT ENT Exam: Normal Exam - Neck Neck Exam: Normal Inspection - Respiratory Respiratory Exam: Clear to Auscultation - Bilaterally - Cardiovascular Cardiovascular Exam: RRR - GI/Abdominal GI/Abdominal Exam: Normal Bowel Sounds, Non Tender, Non Distended, Soft, No Organomegaly - Rectal Rectal Exam: Deferred - External Exam: Deferred Exam: Deferred - Extremities Extremities Exam: Normal Inspection - Back Back Exam: Normal Inspection - Neurological Neurological Exam: Alert, Oriented x 3, CN II-XII Intact, Speech Intact / Clear - Psychiatric Psychiatric Exam: Normal Affect Assessment and Plan - Patient Problems (1) Acute pancreatitis Current Visit: Yes Status: Acute Comment: Acute pancreatitis secondary to gallstones status post cholecystectomy. Seem to be doing better. We stopped the fluid last night. I encouraged him to eat as he did not eat much yesterday. Told him to get up and walk around. We'll see how things looks in the afternoon after discussion with Dr. Ribera will decide about keeping him or releasing him. Code(s): K85.90 - Acute pancreatitis without necrosis or infection, unspecified (2) Hypertension Current Visit: Yes Status: Acute Comment: I think will restart his blood pressure medication at a lower dosage though. Code(s): I10 - Essential (primary) hypertension (3) Leukocytosis Current Visit: Yes Status: Acute Comment: White Cell count is coming down. Code(s): D72.829 - Elevated white blood cell count, unspecified (4) Renal failure Current Visit: Yes Status: Acute Comment: This is resolved Code(s): N19 - Unspecified kidney failure (5) Hypokalemia Current Visit: Yes Status: Acute Comment: Better he is on potassium replacement Code(s): E87.6 - Hypokalemia
[2018-04-19] MEDS: POTASSIUM CHLORIDE 20 MEQ TAB PO SCH (08:15)
[2018-04-19] MEDS: PANTOPRAZOLE 40 MG TABLET PO SCH (08:15)
[2018-04-19] MEDS ORDERED: [UNRECOGNIZED DRUG - OTHER] PO SCH (09:00)
[2018-04-19] MEDS ORDERED: LISINOPRIL PO SCH (09:00)
[2018-04-19] MEDS ORDERED: LISINOPRIL 10 MG TABLET PO SCH (09:00)
[2018-04-19] MEDS ORDERED: HYDROCHLOROTHIAZIDE 25 MG TABLET PO SCH (09:00)
[2018-04-19] MEDS ORDERED: HYDROCHLOROTHIAZIDE PO SCH (09:00)
[2018-04-19] MEDS ORDERED: LISINOPRIL 20 MG TABLET PO SCH (09:00)
--- NOTE | 2018-04-19 09:41 | PDOC(PROG) ---
Subjective Post Op Day: 1 Pain Management: PO Arias Catheter: No Flatus: Yes Diet: low-fat diet Date and Time of Service: 04/09/2018 at 9:30 Interval History: Patient states he's feeling a lot better did yesterday. No fever no chills. Tolerating diet. Objective : Data - Labs CBC and BMP: 04/19/18 04:34 04/19/18 04:34 - Vital Signs Vital Signs and I&O: Vital Signs - Last Taken Temperature 97.3 F 04/19/18 07:29 Pulse Rate 85 04/19/18 07:29 Respiratory Rate 18 04/19/18 07:29 Blood Pressure 150/82 04/19/18 07:29 Pulse Ox 92 04/19/18 07:29 Intake and Output (24hr x 4 totals) 04/17/18 04/18/18 04/19/18 04/20/18 05:59 05:59 05:59 05:59 Intake Total 2964 / 2964 2577 / 2577 4082 / 4082 260 / 260 Output Total 125 / 125 425 / 425 2950 / 2950 Balance 2839 / 2839 2152 / 2152 1132 / 1132 260 / 260 Objective : Exam - General General Appearance: No Acute Distress, Cooperative - GI/Abdominal GI/Abdominal Exam: Normal Bowel Sounds, Non Tender, Non Distended, Soft Assessment and Plan - Patient Problems (1) Acute gallstone pancreatitis Current Visit: Yes Status: Acute Code(s): K85.10 - Biliary acute pancreatitis without necrosis or infection - Assessment / Plan Additional Assessment/Plan Details: Patient is status post lap scopic cholecystectomy with intraoperative declined exam. He is doing very well. His white count is still elevated therefore given another dose of antibiotics they hopefully be ready be discharged in a.m. on April 20
--- NOTE | 2018-04-19 11:03 | CRNA.PROGR ---
Anesthesia Note - Progress Notes Anesthesia Progress Note: lying in bed. Through his daughter interpreting he says he feels better today. "poquito" pain in r side of abdomen. Denies nausea. Denies sore throat. No supplemental o2 on at present. Vital Signs - Last Taken Temperature 97.3 F 04/19/18 07:29 Pulse Rate 85 04/19/18 07:29 Respiratory Rate 18 04/19/18 07:29 Blood Pressure 150/82 04/19/18 07:29 Pulse Ox 92 04/19/18 07:29 No apparent anesthetic difficulties.
[2018-04-19] MEDS: HYDROcodone-APAP 7.5 MG-325 MG TABLET PO PRN ×3 (12:32→20:11)
[2018-04-19] MEDS: Simvastatin Tab 20 MG TAB PO SCH (20:08)
[2018-04-19] MEDS: Ertapenem Inj 1 GM in Sodium Chloride 0.9% 100 ML IV SCH (20:08)
[2018-04-20] MEDS: HYDROcodone-APAP 7.5 MG-325 MG TABLET PO PRN ×3 (01:54→20:10)
[2018-04-20 05:30] LABS: BASOPHILS # (AUTO) 0.01 10*3/UL; BASOPHILS % (AUTO) 0.1 % (0-1); EOSINOPHILS # (AUTO) 0.12 10*3/UL; EOSINOPHILS % (AUTO) 0.7 % (0-8); Hematocrit [HCT] 38.2 % (42.0-52.0); Hemoglobin [HGB] 13.3 g/dL (14.0-18.0); LYMPHOCYTES # (AUTO) 1.64 10*3/uL; MEAN CORPUSCULAR HEMOGLOBIN 28.7 PG (27-31); MEAN CORPUSCULAR HGB CONC 34.8 g/dL (33-37); MEAN CORPUSCULAR VOLUME 82.5 FL (80-90); MEAN PLATELET VOLUME 9.4 FL (7.4-12.2); MONOCYTES # (AUTO) 1.77 10*3/UL (0.3-0.8); NEUTROPHILS # (AUTO) 12.36 10*3/UL; NEUTROPHILS % (AUTO) 77.1 % (50-80); RED BLOOD COUNT 4.63 10^6/uL (4.70-6.10)
[2018-04-20 05:50] LABS: PLATELET MORPHOLOGY COMMENT NORMAL MORPHOLOGY (NORM); RBC MORPHOLOGY COMMENT NORMAL MORPHOLOGY (NORM); WBC MORPHOLOGY COMMENT NORMAL MORPHOLOGY (NORM)
[2018-04-20] MEDS: LISINOPRIL 10 MG TABLET PO SCH (09:25)
[2018-04-20] MEDS: PANTOPRAZOLE 40 MG TABLET PO SCH (09:25)
[2018-04-20] MEDS: POTASSIUM CHLORIDE 20 MEQ TAB PO SCH (09:25)
[2018-04-20] MEDS: HYDROCHLOROTHIAZIDE 25 MG TABLET PO SCH (09:26)
--- NOTE | 2018-04-20 11:24 | PDOC(PROG) ---
Subjective Post Op Day: postop day 2 Arias Catheter: No Flatus: Yes Diet: Regular (Low-fat) Date and Time of Service: 04/20/2018 at 1125 Interval History: Patient states that he feels fine he denies fevers tolerating diet Objective : Data - Labs CBC and BMP: 04/20/18 04:21 04/19/18 04:34 - Vital Signs Vital Signs and I&O: Vital Signs - Last Taken Temperature 98.8 F 04/20/18 09:00 Pulse Rate 86 04/20/18 09:00 Respiratory Rate 18 04/20/18 09:00 Blood Pressure 178/96 04/20/18 09:00 Pulse Ox 94 04/20/18 09:00 Intake and Output (24hr x 4 totals) 04/18/18 04/19/18 04/20/18 04/21/18 05:59 05:59 05:59 05:59 Intake Total 2577 / 2577 4082 / 4082 1280 / 1280 380 / 380 Output Total 425 / 425 2950 / 2950 Balance 2152 / 2152 1132 / 1132 1280 / 1280 380 / 380 Objective : Exam - GI/Abdominal GI/Abdominal Exam: Non Distended, Soft Assessment and Plan - Patient Problems (1) Acute gallstone pancreatitis Current Visit: Yes Status: Acute Code(s): K85.10 - Biliary acute pancreatitis without necrosis or infection - Assessment / Plan Additional Assessment/Plan Details: Overall patient is doing very well. His white count still elevated given the fact he had a necrotic gallbladder think another day of IV antibiotics before being discharge is justified.
--- NOTE | 2018-04-20 13:12 | PDOC(PROG) ---
Date and Time of Service: 04/20/2018, 1320 Interval History: complains of hiccups. states medications are helping relieve pain in abdomen. no chest pains, no shortness of breath. sees a doctor at the [facility]. Objective : Data - Labs CBC and BMP: 04/20/18 04:21 04/19/18 04:34 Objective : Exam - General General Appearance: No Acute Distress, Cooperative Additional General Exam Details: Vital Signs - Last Taken Temperature 98.1 F 04/20/18 12:55 Pulse Rate 83 04/20/18 12:55 Respiratory Rate 18 04/20/18 12:55 Blood Pressure 159/90 04/20/18 12:55 Pulse Ox 95 04/20/18 12:55 - Eye Eye Exam: No Scleral Icterus - ENT ENT Exam: Mucous Membranes Moist - Respiratory Respiratory Exam: Clear to Auscultation - Bilaterally, Breathing Non Labored - Cardiovascular Cardiovascular Exam: RRR, No Murmur, No Clicks, No Gallops, No Rubs, No JVD - GI/Abdominal GI/Abdominal Exam: Normal Bowel Sounds, Non Tender, Non Distended, Soft - Extremities Extremities Exam: No Clubbing Present, No Edema Present, No Cyanosis Present - Neurological Neurological Exam: Alert, Oriented x 3, No Facial Droop, Speech Intact / Clear, Moves All Extremities Equally Assessment and Plan - Patient Problems (1) Gallbladder necrosis Current Visit: Yes Status: Acute Code(s): K81.0 - Acute cholecystitis (2) Acute pancreatitis Current Visit: Yes Status: Acute Code(s): K85.90 - Acute pancreatitis without necrosis or infection, unspecified Qualifiers: Pancreatitis type: biliary (3) Hypertension Current Visit: Yes Status: Chronic Code(s): I10 - Essential (primary) hypertension Qualifiers: Hypertension type: essential hypertension Qualified Code(s): I10 - Essential (primary) hypertension (4) Leukocytosis Current Visit: Yes Status: Acute Code(s): D72.829 - Elevated white blood cell count, unspecified Qualifiers: Leukocytosis type: leukemoid reaction Qualified Code(s): D72.823 - Leukemoid reaction (5) Renal failure Current Visit: Yes Status: Resolved Code(s): N19 - Unspecified kidney failure Qualifiers: Renal failure chronicity: acute Acute renal failure type: unspecified Qualified Code(s): N17.9 - Acute kidney failure, unspecified (6) Hypokalemia Current Visit: Yes Status: Acute Code(s): E87.6 - Hypokalemia - Assessment / Plan Additional Assessment/Plan Details: Check labs in a.m. Continue antibiotics, I will call his clinic tomorrow in [place], and see if we can get him an appointment in with a primary physician for review and probably elect to continue antibiotic for total of 7 days with the gallbladder necrosis and elevated white blood cell count. Discussed with surgery. Ambulate.
[2018-04-20] MEDS: Ertapenem Inj 1 GM in Sodium Chloride 0.9% 100 ML IV SCH (20:09)
[2018-04-20] MEDS: Simvastatin Tab 20 MG TAB PO SCH (20:10)
[2018-04-21] MEDS: HYDROcodone-APAP 7.5 MG-325 MG TABLET PO PRN ×3 (04:15→21:13)
[2018-04-21 05:06] LABS: Hematocrit [HCT] 41.2 % (42.0-52.0); Hemoglobin [HGB] 14.5 g/dL (14.0-18.0); MEAN CORPUSCULAR HEMOGLOBIN 28.8 PG (27-31); MEAN CORPUSCULAR HGB CONC 35.2 g/dL (33-37); MEAN CORPUSCULAR VOLUME 81.7 FL (80-90); MEAN PLATELET VOLUME 9.5 FL (7.4-12.2); RED BLOOD COUNT 5.04 10^6/uL (4.70-6.10)
[2018-04-21 05:20] LABS: PLATELET MORPHOLOGY COMMENT NORMAL MORPHOLOGY (NORM); RBC MORPHOLOGY COMMENT NORMAL MORPHOLOGY (NORM); WBC MORPHOLOGY COMMENT SEE COMMENTS (NORM)
[2018-04-21 05:21] LABS: BAND NEUTROPHILS % 3 % (0-10); BASOPHILS % (MANUAL) 0 % (0-1); BLOOD UREA NITROGEN 20 mg/dL (7-22); BUN/CREATININE RATIO 22.22 (6-20); EOSINOPHILS % (MANUAL) 0 % (0-8); MONOCYTES % (MANUAL) 12 % (0-12); NEUTROPHILS % (MANUAL) 71 % (50-80); SERUM ALBUMIN 3.3 g/dL (3.5-4.8)
[2018-04-21] MEDS: HYDROCHLOROTHIAZIDE 25 MG TABLET PO SCH (06:58)
[2018-04-21] MEDS: PANTOPRAZOLE 40 MG TABLET PO SCH (06:58)
[2018-04-21] MEDS: POTASSIUM CHLORIDE 20 MEQ TAB PO SCH ×3 (08:38→21:13)
[2018-04-21] MEDS: ASPIRIN 81 MG (BABY) CHEWABLE TABLET PO SCH (08:39)
[2018-04-21] MEDS: LISINOPRIL 10 MG TABLET PO SCH (08:39)
[2018-04-21] MEDS ORDERED: POTASSIUM CHLORIDE 20 MEQ TAB PO ONE (08:58)
[2018-04-21] MEDS ORDERED: ASPIRIN 81 MG PO SCH (09:00)
--- NOTE | 2018-04-21 09:09 | PDOC(PROG) ---
Subjective Post Op Day: postop day 3 Arias Catheter: No Flatus: Yes Diet: Regular Date and Time of Service: 04/21/2018 at 9 AM Interval History: Patient states that he is having no abdominal pain. He's not nauseated vomiting. He denies any fevers. I stitches 99.8. He has not had bowel movement but is passing flatus. Objective : Data - Labs CBC and BMP: 04/21/18 04:14 04/21/18 04:14 - Vital Signs Vital Signs and I&O: Vital Signs - Last Taken Temperature 98.8 F 04/21/18 06:36 Pulse Rate 91 04/21/18 07:00 Respiratory Rate 17 04/21/18 06:36 Blood Pressure 138/80 04/21/18 06:36 Pulse Ox 92 04/21/18 06:36 Intake and Output (24hr x 4 totals) 04/19/18 04/20/18 04/21/18 04/22/18 05:59 05:59 05:59 05:59 Intake Total 4082 / 4082 1280 / 1280 1370 / 1370 490 / 490 Output Total 2950 / 2950 Balance 1132 / 1132 1280 / 1280 1370 / 1370 490 / 490 Objective : Exam - Respiratory Respiratory Exam: Clear to Auscultation - Bilaterally - GI/Abdominal GI/Abdominal Exam: Normal Bowel Sounds, Non Distended, Soft, Positive for RUQ Pain, No Hepatomegaly, No Splenomegaly Assessment and Plan - Patient Problems (1) Acute gallstone pancreatitis Current Visit: Yes Status: Acute Code(s): K85.10 - Biliary acute pancreatitis without necrosis or infection - Assessment / Plan Additional Assessment/Plan Details: Patient overall is feeling better his white count has gone back up to 19,000. His lipase is 776. Total bilirubin is 3.0. Since patient is increasing white count despite antibody therapy I do think we need to check for fluid collection. I also would like to see if he is having a bile leak. Therefore will get a CT scan of the abdomen today.
--- NOTE | 2018-04-21 10:43 | DI ---
CT ABDOMEN SCAN WITH IV CONTRAST, 04/21/2018 8:40 AM : Clinical History: Elevated white count post cholecystectomy. Pancreatitis. Previous Exam: 04/15/2018. Scans are performed from the lower lung bases through the liver and kidneys with IV contrast. Sagitta l and coronal reformatted images are generated. 75 mL of Isovue 300 was injected IV. No oral or recta l contrast was ordered. There is a moderate right pleural effusion with right lower lobe atelectasis and a small left pleural effusion. The liver is normal. The patient is status post cholecystectomy and the common bile duct m easures 7-8 mm. There is increased fluid in the retroperitoneal space surrounding the right kidney in the head of the pancreas compared to the previous study. The pancreatic head still is disproportiona tely larger than expected compared to the body and tail. Inflammatory changes surround the pancreatic head and the body and tail appear normal. There is increased edema within the mesenteric fat in prox imity to the gallbladder fossa and this is probably related to surgery. Both kidneys are normal in si ze, shape, position and contour. There is no hydronephrosis or hydroureter. No renal or ureteral calc sherita are present. There are no abnormal retrocrural or periaortic nodes. A small amount of fluid remai ns in more since pouch as well as over the dome of the right lobe. READIN. Status post cholecystectomy since the previous exam and the common bile duct measures 7-8 mm. Inf lammatory/infiltrative changes noted in the mesenteric fat in the right upper quadrant in this is con sistent with recent surgery. There is a small amount of free fluid in Morison's pouch and surrounding the dome of the right lobe of the liver. There has been increase in the amount of retroperitoneal fl uid in proximity to the head of the pancreas and the right kidney. Changes in the head of the pancrea s are consistent with acute pancreatitis. 2. The adrenal glands, kidneys, and spleen are normal. 3. Moderate right pleural effusion with right lower lobe atelectasis; small left pleural effusion.
[2018-04-21] MEDS ORDERED: Magnesium Sulfate 2gm (Premix) 2 GM/50 ML BAG IV ONE (11:00)
[2018-04-21] MEDS: D5-NS + 20mEq KCL 1,000 ML PRIMARY IV SCH ×2 (11:38→21:14)
[2018-04-21] MEDS: Magnesium Sulfate 1gm (Premix) 1 GM/100 ML BAG IV SCH ×2 (11:38→12:44)
--- NOTE | 2018-04-21 17:41 | PDOC(PROG) ---
Date and Time of Service: 04/21/2018, 1735 Interval History: No chest pain, shortness breath, nausea or vomiting. Minimal pain and right upper quadrant. I saw the patient earlier today. Spoke with surgery. Spoke with radiology. No evidence of bile leak with HIDA scan. The fluid appears to be related to pancreatitis. I spoke with infectious disease in [place] regarding the patient's situation on antibiotics and they recommended consideration for 7-10 day course as recommended and antibiotics. White count still stays elevated or patient deteriorates in terms of his clinical appearance , and sampling of fluid may be necessary. They suggested switching to meropenem. Patient does admit to drinking occasional shot of alcohol. Objective : Data - Labs CBC and BMP: 04/21/18 04:14 04/21/18 04:14 Additional Lab Results: 04/21/18 04/21/18 04/21/18 04:09 04:14 04:14 Neutrophils % (Manual) 71 Band Neutrophils % 3 Magnesium Total Bilirubin 3.0 H Conjugated Bilirubin Unconjugated Bilirubin AST 60 H ALT 51 Alkaline Phosphatase 288 H Total Protein 6.6 Albumin 3.3 L Globulin 3.3 Albumin/Globulin Ratio 1.00 L Lipase 727 H 04/21/18 04/21/18 08:58 08:58 Neutrophils % (Manual) Band Neutrophils % Magnesium 1.6 Total Bilirubin Conjugated Bilirubin 0.40 H Unconjugated Bilirubin 1.0 AST ALT Alkaline Phosphatase Total Protein Albumin Globulin Albumin/Globulin Ratio Lipase Objective : Exam - General General Appearance: No Acute Distress, Cooperative Additional General Exam Details: Vital Signs (24 hrs) Temp Pulse Resp BP Pulse Ox 04/21/18 16:30 98.3 F 95 20 151/82 93 04/21/18 11:06 98.3 F 90 18 136/75 94 04/21/18 07:00 91 04/21/18 06:36 98.8 F 91 17 138/80 92 04/21/18 04:29 99.0 F 95 20 139/81 93 04/21/18 00:09 98.7 F 84 21 161/91 95 04/20/18 20:15 99.8 F H 99 21 153/90 92 - Eye Eye Exam: No Scleral Icterus - ENT ENT Exam: Mucous Membranes Moist - Respiratory Respiratory Exam: Clear to Auscultation - Bilaterally, Breathing Non Labored, Decreased Breath Sounds (in right base) - Cardiovascular Cardiovascular Exam: RRR, No Murmur, No Clicks, No Gallops, No Rubs, No JVD - GI/Abdominal GI/Abdominal Exam: Normal Bowel Sounds, Non Tender, Non Distended, Soft - Extremities Extremities Exam: No Clubbing Present, No Edema Present, No Cyanosis Present - Neurological Neurological Exam: Alert, Oriented x 3, No Facial Droop, Speech Intact / Clear, Moves All Extremities Equally Assessment and Plan - Patient Problems (1) Gallbladder necrosis Current Visit: Yes Status: Acute Code(s): K81.0 - Acute cholecystitis (2) Acute pancreatitis Current Visit: Yes Status: Acute Code(s): K85.90 - Acute pancreatitis without necrosis or infection, unspecified Qualifiers: Pancreatitis type: biliary Acute pancreatitis complication: infected necrosis Qualified Code(s): K85.12 - Biliary acute pancreatitis with infected necrosis (3) Hypertension Current Visit: Yes Status: Chronic Code(s): I10 - Essential (primary) hypertension Qualifiers: Hypertension type: essential hypertension Qualified Code(s): I10 - Essential (primary) hypertension (4) Leukocytosis Current Visit: Yes Status: Acute Code(s): D72.829 - Elevated white blood cell count, unspecified Qualifiers: Leukocytosis type: leukemoid reaction Qualified Code(s): D72.823 - Leukemoid reaction (5) Renal failure Current Visit: Yes Status: Resolved Code(s): N19 - Unspecified kidney failure Qualifiers: Renal failure chronicity: acute Acute renal failure type: unspecified Qualified Code(s): N17.9 - Acute kidney failure, unspecified (6) Hypokalemia Current Visit: Yes Status: Acute Code(s): E87.6 - Hypokalemia - Assessment / Plan Additional Assessment/Plan Details: Review. I'll switch patient to meropenem as suggested by infectious disease and to call 7-10 days of antibiotics including Invanz that has been delivered so far. That from the date of surgery. Given the lipase elevation, changed nothing by mouth, start D5 half normal with potassium. Replace magnesium and potassium. Check labs in a.m. Patient will need a follow-up CT scan to make sure that the pancreatitis is completely resolved without development of any pseudocyst given the fluid collection noted on CT scan today. Month to discuss surgery and the patient regarding best place to do this anabolic therapy. It may be best to continue course here and finish course here prior to discharge. Complex. I still don't know if the fluid is actually infected or not, but at this point I think it may be more harmful to sample it and agree with infectious disease and perhaps empiric therapy here make some sense since he is already on antibiotics and committed to that course. I also think that if the patient's white count remains elevated despite meropenem, he may need this fluid sampled. I will hold off on thoracentesis for now as the patient is not symptomatic at this time and I suspect it is reactive.
[2018-04-21] MEDS: Meropenem Inj 1 GM in Sodium Chloride 0.9% 100 ML IV SCH (18:06)
--- NOTE | 2018-04-21 20:19 | DI ---
Tc-99 HIDA BILIARY SCAN, 04/21/2018 10:15 AM : Clinical History: Bile leak post cholecystectomy. Previous Related Exam: None. The patient was injected with 7 mCi of Tc-99 Choletec, a HIDA compound. An anterior dynamic flow stud y was performed followed by sequential anterior imaging at one minute intervals out to 60 minutes. SP ECT imaging was performed for educational training purposes and the patient was not charged for this portion of the exam. The anterior flow study is normal. There is excretion of activity into the bile duct system by 6-7 mi nutes. There is visualization of activity in the duodenum and proximal small bowel by 10 minutes. The entire C-loop is filled with activity and there is reflux into the duodenum. There is no evidence of a bile leak. This is confirmed with the tomograms. Readin. Normal excretory Tc-99 HIDA biliary kinetics. 2. There is no evidence of a postoperative bile leak.
[2018-04-21] MEDS: Simvastatin Tab 20 MG TAB PO SCH (21:13)
[2018-04-22] MEDS: Meropenem Inj 1 GM in Sodium Chloride 0.9% 100 ML IV SCH ×3 (01:32→17:15)
[2018-04-22 04:48] LABS: Hematocrit [HCT] 38.4 % (42.0-52.0); Hemoglobin [HGB] 13.2 g/dL (14.0-18.0); MEAN CORPUSCULAR HGB CONC 34.4 g/dL (33-37); MEAN CORPUSCULAR VOLUME 84.4 FL (80-90); MEAN PLATELET VOLUME 9.4 FL (7.4-12.2); RED BLOOD COUNT 4.55 10^6/uL (4.70-6.10)
[2018-04-22 04:53] LABS: BLOOD UREA NITROGEN 20 mg/dL (7-22); BUN/CREATININE RATIO 18.18 (6-20); LIPASE 733 IU/L (23-300)
[2018-04-22 05:04] LABS: BAND NEUTROPHILS % 1 % (0-10); BASOPHILS % (MANUAL) 0 % (0-1); EOSINOPHILS % (MANUAL) 0 % (0-8); MONOCYTES % (MANUAL) 4 % (0-12); NEUTROPHILS % (MANUAL) 80 % (50-80); PLATELET MORPHOLOGY COMMENT NORMAL MORPHOLOGY (NORM); RBC MORPHOLOGY COMMENT NORMAL MORPHOLOGY (NORM); WBC MORPHOLOGY COMMENT SEE COMMENTS (NORM)
[2018-04-22] MEDS: HYDROCHLOROTHIAZIDE 25 MG TABLET PO SCH (06:47)
[2018-04-22] MEDS: PANTOPRAZOLE 40 MG TABLET PO SCH (06:47)
[2018-04-22] MEDS: D5-NS + 20mEq KCL 1,000 ML PRIMARY IV SCH ×2 (08:33→16:45)
[2018-04-22] MEDS: ASPIRIN 81 MG (BABY) CHEWABLE TABLET PO SCH (08:36)
[2018-04-22] MEDS: POTASSIUM CHLORIDE 20 MEQ TAB PO SCH (08:36)
[2018-04-22] MEDS: LISINOPRIL 10 MG TABLET PO SCH (08:36)
[2018-04-22] MEDS ORDERED: LIDOCAINE 2% 20 MG/ML - 20 ML VIAL SUBCUT PRN (12:45)
[2018-04-22] MEDS ORDERED: Lidocaine 1% 10 MG/ML - 20 ML VIAL SUBCUT PRN (12:45)
--- NOTE | 2018-04-22 13:23 | PDOC(PROG) ---
Date and Time of Service: 04/22/2018, 1315 Interval History: Patient seen and evaluated with sterile products processor today. The patient still feels hungry, does not have any chest pain or shortness of breath. Abdominal pain is minimal. We discussed the nature of his fluid collection at this point and lack of pseudocyst, the decision that we are going to treat with IV antibiotics for another 4 days, and I also discussed going on TPN until the lipase improves because of the severity of this pancreatitis. The patient is agreeable to these issues. He is agreeable to the plan. He expressed understanding with sterile products processor. Objective : Data - Labs CBC and BMP: 04/22/18 04:07 04/22/18 04:07 Additional Lab Results: 04/22/18 04:07 Total Bilirubin 1.5 H Alkaline Phosphatase 224 H Lipase 733 H Objective : Exam - General General Appearance: No Acute Distress, Cooperative Additional General Exam Details: Vital Signs - Last Taken Temperature 97.7 F 04/22/18 11:54 Pulse Rate 83 04/22/18 11:54 Respiratory Rate 16 04/22/18 11:54 Blood Pressure 135/80 04/22/18 11:54 Pulse Ox 92 04/22/18 11:54 - Eye Eye Exam: No Scleral Icterus - ENT ENT Exam: Mucous Membranes Moist - Respiratory Respiratory Exam: Clear to Auscultation - Bilaterally, Breathing Non Labored, Crackles (in right base) - Cardiovascular Cardiovascular Exam: RRR, No Murmur, No Clicks, No Gallops, No Rubs, No JVD - GI/Abdominal GI/Abdominal Exam: Normal Bowel Sounds, Non Tender, Non Distended, Soft - Rectal Rectal Exam: Deferred - External Exam: Deferred Exam: Deferred - Extremities Extremities Exam: No Clubbing Present, No Edema Present, No Cyanosis Present - Neurological Neurological Exam: Alert, Oriented x 3, No Facial Droop, Speech Intact / Clear, Moves All Extremities Equally - Psychiatric Psychiatric Exam: Normal Affect, Normal Mood Assessment and Plan - Patient Problems (1) Acute pancreatitis Current Visit: Yes Status: Acute Code(s): K85.90 - Acute pancreatitis without necrosis or infection, unspecified Qualifiers: Pancreatitis type: biliary Acute pancreatitis complication: infected necrosis Qualified Code(s): K85.12 - Biliary acute pancreatitis with infected necrosis (2) Gallbladder necrosis Current Visit: Yes Status: Acute Code(s): K81.0 - Acute cholecystitis (3) Hypertension Current Visit: Yes Status: Chronic Code(s): I10 - Essential (primary) hypertension Qualifiers: Hypertension type: essential hypertension Qualified Code(s): I10 - Essential (primary) hypertension (4) Leukocytosis Current Visit: Yes Status: Acute Code(s): D72.829 - Elevated white blood cell count, unspecified Qualifiers: Leukocytosis type: leukemoid reaction Qualified Code(s): D72.823 - Leukemoid reaction (5) Renal failure Current Visit: Yes Status: Resolved Code(s): N19 - Unspecified kidney failure Qualifiers: Renal failure chronicity: acute Acute renal failure type: unspecified Qualified Code(s): N17.9 - Acute kidney failure, unspecified (6) Hypokalemia Current Visit: Yes Status: Acute Code(s): E87.6 - Hypokalemia - Assessment / Plan Additional Assessment/Plan Details: discussed with radiology, and they will not be able to do the PICC line today because of radiation level from his HIDA scan yesterday. With mildly in the holiday, we may have to go to [facility] to start TPN. I really think we need to keep him on TPN over the next 4 days and hold off on advancing diet until the lipase drops again and until his pancreatitis improves. Meropenem for 4 more days. Encouraged with a white blood cell count dropped today, check again tomorrow. I will go ahead and allow ice chips. If the patient gets worse, may need to look at transfer to a center to sample fluid for possible infection. Check chest x-ray in 1-2 days to see whether or not the effusion on the right side is improved. There are crackles in the right base today so could be clearing up a bit. Electrolytes corrected, but check again tomorrow and replace as necessary. CT scan at 6 weeks to make sure no pseudocyst developed and that this pancreatitis resolved. I told the patient that he could do that here if he was still looking for work versus doing this in [place]. ELENITA Siu, helped translate as she is bilingual in [place]ian and [place]an. The patient stated to her that he understood very well the plan moving forward.
--- NOTE | 2018-04-22 13:33 | PDOC(PROG) ---
Subjective Post Op Day: postop day 4 Pain Management: Peripheral BEFORE AND [employer] Flatus: Yes Diet: NPO Date and Time of Service: 04/22/2018 at 1330 Interval History: Patient sees feeling fine having no abdominal pain Objective : Data - Labs CBC and BMP: 04/22/18 04:07 04/22/18 04:07 - Vital Signs Vital Signs and I&O: Vital Signs - Last Taken Temperature 97.7 F 04/22/18 11:54 Pulse Rate 83 04/22/18 11:54 Respiratory Rate 16 04/22/18 11:54 Blood Pressure 135/80 04/22/18 11:54 Pulse Ox 92 04/22/18 11:54 Intake and Output (24hr x 4 totals) 04/20/18 04/21/18 04/22/18 04/23/18 05:59 05:59 05:59 05:59 Intake Total 1280 / 1280 1370 / 1370 2348 / 2348 Balance 1280 / 1280 1370 / 1370 2348 / 2348 Objective : Exam - GI/Abdominal GI/Abdominal Exam: Normal Bowel Sounds, Non Tender, Non Distended, Soft Assessment and Plan - Patient Problems (1) Acute gallstone pancreatitis Current Visit: Yes Status: Acute Code(s): K85.10 - Biliary acute pancreatitis without necrosis or infection - Assessment / Plan Additional Assessment/Plan Details: Patient still has what appears be pancreatitis. Another day of nothing by mouth post start TPN
[2018-04-22] MEDS: HYDROcodone-APAP 7.5 MG-325 MG TABLET PO PRN (19:56)
[2018-04-22] MEDS ORDERED: LIDOCAINE HCL/PF 1% (10 MG/1 ML) - 2 ML AMP ONE (20:30)
[2018-04-22] MEDS: Fat Emulsions Inj 20% 250 ML IV SCH (21:11)
[2018-04-22] MEDS: Simvastatin Tab 20 MG TAB PO SCH (21:11)
[2018-04-22] MEDS: AA-Dext 5%-25%/Calcium/Lytes 2,000 ML IV SCH (21:12)
--- NOTE | 2018-04-22 22:07 | DI ---
EXAM: XR Chest, 1 View CLINICAL HISTORY: ITS.REASON cvc right side placement, question pneumothorax Physician Notes: Tech Comments: TECHNIQUE: Frontal view of the chest. COMPARISON: No relevant prior studies available. FINDINGS: Lungs: Small nonspecific nodular opacity in the lower right lung. No consolidation. Pleural space: Unremarkable. No pneumothorax. Heart: Unremarkable. No cardiomegaly. Mediastinum: Unremarkable. Bones/joints: Unremarkable. Tubes, lines and devices: Central line at the cavoatrial junction IMPRESSION: No acute findings.
--- NOTE | 2018-04-22 22:21 | PROCEDURE1 ---
Procedure - - Date and Time of Service: 04/22/2018, 2210 Procedure Performed: Central Line : Non Tunneled Procedure Note: Procedure performed: Right Internal jugular central venous catheter placement Indication for procedure: Pancreatitis, NPO and need for TPN, antibiotics, lab draws, with risks discussed as possible arterial puncture, pneumothorax, and localized pain. Benefits for medication administration, blood draws, hemodynamic monitoring, and management of clinical condition. Description of procedure: The patient was prepped and draped in the usual fashion with a full body drape. Ultrasound guidance was used to identify the right IJ vein. The area was cleansed with chlorhexidine. Lidocaine was used for local anesthesia. Using an introducer needle attached to a 5 mL syringe, this was inserted and angled towards the ipsilateral nipple, with ultrasound guidance as well. There was a flash of venous blood as the internal jugular vein was cannulated via the introducer needle. Initially, passive the back wall of the internal jugular vein and had carotid pulsation and this was recognized and the needle was withdrawn and pressure was held. Then reinserted the needle, and saw flash of dark venous, purple blood, and no pulsation. A guidewire was inserted through the needle into the internal jugular vein and the needle was removed over the wire. A 10 blade was then used to perform a small dermatotomy at the needle insertion site. The venous dilator was then placed over the guidewire using Seldinger technique, and then removed. Quad-Lumen central venous catheter was then placed over the guidewire inserted into the internal jugular vein and the guidewire was removed. This was advanced to 15 cm. All ports were flushed with normal saline. All ports had draw back. The catheter was sutured into place, and the skin was cleansed with chlorhexidine and the catheter was dressed. A postprocedure x-ray showed no evidence of pneumothorax and the line appeared to be in the correct location. There is a increased density in the right lower lobe but no evidence of effusion which was present on prior chest x-ray and has improved.. I personally reviewed the chest X-ray. Complications: Recognized carotid artery puncture, pressure held, and hemostasis achieved, with subsequent inability to completely procedure without any further issues. Disposition: Patient remains in fair condition on the medical floor dealing with his pancreatitis.
[2018-04-23] MEDS: Meropenem Inj 1 GM in Sodium Chloride 0.9% 100 ML IV SCH ×3 (02:45→17:19)
[2018-04-23 05:24] LABS: Hematocrit [HCT] 36.4 % (42.0-52.0); Hemoglobin [HGB] 12.6 g/dL (14.0-18.0); MEAN CORPUSCULAR HEMOGLOBIN 29.2 PG (27-31); MEAN CORPUSCULAR HGB CONC 34.6 g/dL (33-37); MEAN CORPUSCULAR VOLUME 84.5 FL (80-90); MEAN PLATELET VOLUME 9.6 FL (7.4-12.2); RED BLOOD COUNT 4.31 10^6/uL (4.70-6.10)
[2018-04-23 05:28] LABS: BLOOD UREA NITROGEN 15 mg/dL (7-22); BUN/CREATININE RATIO 18.75 (6-20); LIPASE 858 IU/L (23-300)
[2018-04-23 05:42] LABS: BAND NEUTROPHILS % 1 % (0-10); BASOPHILS % (MANUAL) 0 % (0-1); EOSINOPHILS % (MANUAL) 1 % (0-8); MONOCYTES % (MANUAL) 4 % (0-12); NEUTROPHILS % (MANUAL) 83 % (50-80); PLATELET MORPHOLOGY COMMENT NORMAL MORPHOLOGY (NORM); RBC MORPHOLOGY COMMENT NORMAL MORPHOLOGY (NORM); WBC MORPHOLOGY COMMENT NORMAL MORPHOLOGY (NORM)
[2018-04-23] MEDS: PANTOPRAZOLE IV 40 MG VIAL IVP SCH (08:14)
[2018-04-23] MEDS: ENOXAPARIN SODIUM 40 MG/0.4 ML SYRINGE SUBCUT SCH (08:16)
[2018-04-23] MEDS: ASPIRIN 81 MG (BABY) CHEWABLE TABLET PO SCH (08:16)
[2018-04-23] MEDS: LISINOPRIL 10 MG TABLET PO SCH (08:16)
[2018-04-23] MEDS: HYDROCHLOROTHIAZIDE 25 MG TABLET PO SCH (08:16)
--- NOTE | 2018-04-23 11:30 | PDOC(PROG) ---
Subjective Post Op Day: 5 Pain Management: PO Flatus: Yes Date and Time of Service: 04/23/2018 at 11:30 Interval History: Patient states he's having no abdominal pain. Objective : Data - Labs CBC and BMP: 04/23/18 04:44 04/23/18 04:44 - Vital Signs Vital Signs and I&O: Vital Signs - Last Taken Temperature 97.6 F 04/23/18 08:58 Pulse Rate 75 04/23/18 08:58 Respiratory Rate 20 04/23/18 08:58 Blood Pressure 148/80 04/23/18 08:58 Pulse Ox 95 04/23/18 08:58 Intake and Output (24hr x 4 totals) 04/21/18 04/22/18 04/23/18 04/24/18 05:59 05:59 05:59 05:59 Intake Total 1370 / 1370 2348 / 2348 1623 / 1623 Balance 1370 / 1370 2348 / 2348 1623 / 1623 Objective : Exam - GI/Abdominal GI/Abdominal Exam: Normal Bowel Sounds, Soft (He does have tenderness to palpation and there midepigastric area over the head of the pancreas.) Assessment and Plan - Patient Problems (1) Acute gallstone pancreatitis Current Visit: Yes Status: Acute Code(s): K85.10 - Biliary acute pancreatitis without necrosis or infection - Assessment / Plan Additional Assessment/Plan Details: At this point since patient still has some tenderness I think we should keep him nothing by mouth. If he gets point was having no abdominal tenderness we can feeding even if the lipase and stays elevated.
[2018-04-23] MEDS: Magnesium Sulfate 1gm (Premix) 1 GM/100 ML BAG IV SCH ×2 (12:18→13:36)
--- NOTE | 2018-04-23 14:57 | PDOC(PROG) ---
Date and Time of Service: 04/23/2018, 1453 Interval History: No complaints of chest pain, SOB, nausea or vomiting. denies abdominal pain. Objective : Data - Labs CBC and BMP: 04/23/18 04:44 04/23/18 04:44 Additional Lab Results: 04/23/18 04:44 Lipase 858 H Objective : Exam - General General Appearance: No Acute Distress, Cooperative Additional General Exam Details: Vital Signs (24 hrs) Temp Pulse Pulse Resp BP Pulse Ox 04/23/18 08:58 97.6 F 75 20 148/80 95 04/23/18 03:29 98.5 F 87 20 158/77 95 04/23/18 00:02 98.3 F 83 21 158/76 97 04/22/18 21:00 97.7 F 62 20 136/71 95 04/22/18 18:25 83 83 04/22/18 16:30 98.8 F 83 18 161/86 95 - Eye Eye Exam: No Scleral Icterus - ENT ENT Exam: Mucous Membranes Moist - Respiratory Respiratory Exam: Clear to Auscultation - Bilaterally, Breathing Non Labored - Cardiovascular Cardiovascular Exam: RRR, No Murmur, No Clicks, No Gallops, No Rubs, No JVD - GI/Abdominal GI/Abdominal Exam: Normal Bowel Sounds, Non Tender, Non Distended, Soft Additional GI/Abdominal Exam Details: incisions are dressed - Extremities Extremities Exam: No Clubbing Present, No Edema Present, No Cyanosis Present - Neurological Neurological Exam: Alert, Oriented x 3, No Facial Droop, Speech Intact / Clear, Moves All Extremities Equally - Central Line Examination Central Line Present on Admission: Yes Central Line Type: Triple Lumen Cath (actually quad lumen, right IJ line, no erythema.) Assessment and Plan - Patient Problems (1) Acute pancreatitis Current Visit: Yes Status: Acute Code(s): K85.90 - Acute pancreatitis without necrosis or infection, unspecified Qualifiers: Pancreatitis type: biliary Acute pancreatitis complication: infected necrosis Qualified Code(s): K85.12 - Biliary acute pancreatitis with infected necrosis (2) Gallbladder necrosis Current Visit: Yes Status: Acute Code(s): K81.0 - Acute cholecystitis (3) Hypertension Current Visit: Yes Status: Chronic Code(s): I10 - Essential (primary) hypertension Qualifiers: Hypertension type: essential hypertension Qualified Code(s): I10 - Essential (primary) hypertension (4) Leukocytosis Current Visit: Yes Status: Acute Code(s): D72.829 - Elevated white blood cell count, unspecified Qualifiers: Leukocytosis type: leukemoid reaction Qualified Code(s): D72.823 - Leukemoid reaction (5) Renal failure Current Visit: Yes Status: Resolved Code(s): N19 - Unspecified kidney failure Qualifiers: Renal failure chronicity: acute Acute renal failure type: unspecified Qualified Code(s): N17.9 - Acute kidney failure, unspecified (6) Hypokalemia Current Visit: Yes Status: Acute Code(s): E87.6 - Hypokalemia - Assessment / Plan Additional Assessment/Plan Details: Still worried that lipase is elevated. We'll continue the patient nothing by mouth through the course of antibiotics as possible. At this point it may be worthwhile to also extend the antibiotics out to 10 days but very encouraging at the white cell count drops over the last 2 days. On meropenem, day #4 today of 7-10 days. Continue TPN. Pain medication when necessary. check lipase in a.m. Continue by mouth Potassium and magnesium replacement.
[2018-04-23] MEDS ORDERED: DEXTROSE 31 GM GEL PO PRN (16:56)
[2018-04-23] MEDS ORDERED: Glucagon Inj Vial 1 MG/ML VIAL IM PRN (16:56)
[2018-04-23] MEDS ORDERED: DEXTROSE 50%-WATER SYRINGE 50 ML SYRINGE IVP PRN (16:56)
[2018-04-23] MEDS ORDERED: Insulin Sliding Scale Protocol SUBCUT PRN (16:56)
[2018-04-23] MEDS: AA-Dext 5%-25%/Calcium/Lytes 2,000 ML IV SCH (20:08)
[2018-04-23] MEDS: Simvastatin Tab 20 MG TAB PO SCH (20:08)
[2018-04-23] MEDS: Fat Emulsions Inj 20% 250 ML IV SCH (20:09)
[2018-04-23] MEDS: HEPARIN 500 UNIT/5 ML SYRINGE FOR CENTRAL LINE IVP PRN (20:09)
[2018-04-23] MEDS: HYDROcodone-APAP 7.5 MG-325 MG TABLET PO PRN (20:21)
[2018-04-23] MEDS: Insulin Lispro Flexpen 300 UNIT/3 ML INSULN.PEN SUBCUT SCH (21:11)
[2018-04-24] MEDS: Meropenem Inj 1 GM in Sodium Chloride 0.9% 100 ML IV SCH ×3 (01:00→17:22)
[2018-04-24 05:32] LABS: Hematocrit [HCT] 37.8 % (42.0-52.0); Hemoglobin [HGB] 12.8 g/dL (14.0-18.0); MEAN CORPUSCULAR HEMOGLOBIN 28.4 PG (27-31); MEAN CORPUSCULAR HGB CONC 33.9 g/dL (33-37); MEAN CORPUSCULAR VOLUME 83.8 FL (80-90); MEAN PLATELET VOLUME 9.5 FL (7.4-12.2); RED BLOOD COUNT 4.51 10^6/uL (4.70-6.10)
[2018-04-24 05:37] LABS: BLOOD UREA NITROGEN 19 mg/dL (7-22); BUN/CREATININE RATIO 23.75 (6-20); SERUM ALBUMIN 3.2 g/dL (3.5-4.8)
[2018-04-24 05:44] LABS: HEMOGLOBIN A1C 5.35 % (4.2-6.0)
[2018-04-24 05:54] LABS: BAND NEUTROPHILS % 2 % (0-10); BASOPHILS % (MANUAL) 1 % (0-1); EOSINOPHILS % (MANUAL) 0 % (0-8); MONOCYTES % (MANUAL) 5 % (0-12); NEUTROPHILS % (MANUAL) 74 % (50-80); PLATELET MORPHOLOGY COMMENT NORMAL MORPHOLOGY (NORM); RBC MORPHOLOGY COMMENT NORMAL MORPHOLOGY (NORM); WBC MORPHOLOGY COMMENT NORMAL MORPHOLOGY (NORM)
[2018-04-24 05:59] LABS: LIPASE 1097 IU/L (23-300)
[2018-04-24] MEDS: HYDROCHLOROTHIAZIDE 25 MG TABLET PO SCH (08:02)
[2018-04-24] MEDS: Insulin Lispro Flexpen 300 UNIT/3 ML INSULN.PEN SUBCUT SCH ×4 (08:02→20:32)
[2018-04-24] MEDS: PANTOPRAZOLE IV 40 MG VIAL IVP SCH (09:21)
[2018-04-24] MEDS: ENOXAPARIN SODIUM 40 MG/0.4 ML SYRINGE SUBCUT SCH (09:21)
[2018-04-24] MEDS: LISINOPRIL 10 MG TABLET PO SCH (09:21)
[2018-04-24] MEDS: ASPIRIN 81 MG (BABY) CHEWABLE TABLET PO SCH (09:21)
[2018-04-24] MEDS ORDERED: Sodium Chloride 0.9% 500 ML IV ONE (10:40)
[2018-04-24] MEDS: HEPARIN 500 UNIT/5 ML SYRINGE FOR CENTRAL LINE IVP PRN (11:13)
[2018-04-24] MEDS: AA-Dext 5%-20%/Calcium/Lytes 1,000 ML PRIMARY IV SCH (14:37)
--- NOTE | 2018-04-24 14:58 | PDOC(PROG) ---
Date and Time of Service: 04/24/2018, 1455 Interval History: No chest pains. No shortness breath. Has minimal appetite. No abdominal pain. No nausea or vomiting. Objective : Data - Labs CBC and BMP: 04/24/18 04:59 04/24/18 04:59 Additional Lab Results: 04/24/18 04:59 Magnesium 1.9 Total Bilirubin 0.7 AST 39 ALT 30 Alkaline Phosphatase 289 H Total Protein 6.6 Albumin 3.2 L Globulin 3.4 Lipase 1097 H* Objective : Exam - General General Appearance: No Acute Distress, Cooperative Additional General Exam Details: Vital Signs - Last Taken Temperature 97.7 F 04/24/18 13:00 Pulse Rate 83 04/24/18 13:00 Respiratory Rate 20 04/24/18 13:00 Blood Pressure 163/84 04/24/18 13:00 Pulse Ox 99 04/24/18 13:00 - Eye Eye Exam: No Scleral Icterus - ENT ENT Exam: Mucous Membranes Moist - Respiratory Respiratory Exam: Clear to Auscultation - Bilaterally, Breathing Non Labored - Cardiovascular Cardiovascular Exam: RRR, No Murmur, No Clicks, No Gallops, No Rubs, No JVD - GI/Abdominal GI/Abdominal Exam: Normal Bowel Sounds, Non Tender, Non Distended, Soft - Extremities Extremities Exam: No Clubbing Present, No Edema Present, No Cyanosis Present - Neurological Neurological Exam: Alert, Oriented x 3, No Facial Droop, Speech Intact / Clear, Moves All Extremities Equally Assessment and Plan - Patient Problems (1) Acute pancreatitis Current Visit: Yes Status: Acute Code(s): K85.90 - Acute pancreatitis without necrosis or infection, unspecified Qualifiers: Pancreatitis type: biliary Acute pancreatitis complication: infected necrosis Qualified Code(s): K85.12 - Biliary acute pancreatitis with infected necrosis (2) Gallbladder necrosis Current Visit: Yes Status: Acute Code(s): K81.0 - Acute cholecystitis (3) Hypertension Current Visit: Yes Status: Chronic Code(s): I10 - Essential (primary) hypertension Qualifiers: Hypertension type: essential hypertension Qualified Code(s): I10 - Essential (primary) hypertension (4) Leukocytosis Current Visit: Yes Status: Acute Code(s): D72.829 - Elevated white blood cell count, unspecified Qualifiers: Leukocytosis type: leukemoid reaction Qualified Code(s): D72.823 - Leukemoid reaction (5) Renal failure Current Visit: Yes Status: Resolved Code(s): N19 - Unspecified kidney failure Qualifiers: Renal failure chronicity: acute Acute renal failure type: unspecified Qualified Code(s): N17.9 - Acute kidney failure, unspecified (6) Hypokalemia Current Visit: Yes Status: Acute Code(s): E87.6 - Hypokalemia - Assessment / Plan Additional Assessment/Plan Details: I spoke with Dr. Ribera and also spoke with Dr. Nunes at [phone]. Overall [address]. Nunes suggested that this pancreatitis likely is infection versus severe inflammatory reaction. He stated that sometimes the pancreas can develop robust inflammation. His recommendation was to try a clear liquid diet , monitor the patient's clinical response in terms of pain and discomfort, continue TPN in the short-term, and monitor the patient for upwards of one to 2 weeks and re-CT scan the abdomen in 1-2 weeks to follow the evolution of inflammatory fluid noted. Antibiotic course is unclear. I placed a called infectious disease but have not heard back yet. Tomorrow is 7 days and I have antibiotics scheduled to stop tomorrow and I think that seems reasonable. It could be that the patient still has a leukemoid and leukocytosis reaction from robust and severe inflammation and not infection. As the patient has been afebrile, I think we need to let this clinically present itself and that was agreed upon by Dr. Nunes and Dr. Ribera. The patient should be imaged at 6 weeks as well with CT scan to look for potential pseudocyst. He has central line access at this time, and if TPN needs to be continued beyond 5 more days, I think a PICC line would be appropriate at that time. There is no evidence of infection on examination of the PICC line. I discussed this with the patient, and his daughter, and I will also discuss with him again later when we have a nurse that can translate as well to a better degree. Labs in a.m.
[2018-04-24] MEDS: HYDROcodone-APAP 7.5 MG-325 MG TABLET PO PRN (20:28)
[2018-04-24] MEDS: Simvastatin Tab 20 MG TAB PO SCH (20:28)
[2018-04-24] MEDS: Fat Emulsions Inj 20% 250 ML IV SCH (22:55)
[2018-04-25] MEDS: AA-Dext 5%-20%/Calcium/Lytes 1,000 ML PRIMARY IV SCH ×3 (00:12→20:31)
[2018-04-25] MEDS: Meropenem Inj 1 GM in Sodium Chloride 0.9% 100 ML IV SCH ×3 (02:35→18:05)
[2018-04-25 04:44] LABS: Hematocrit [HCT] 37.8 % (42.0-52.0); Hemoglobin [HGB] 12.8 g/dL (14.0-18.0); MEAN CORPUSCULAR HEMOGLOBIN 28.4 PG (27-31); MEAN CORPUSCULAR HGB CONC 33.9 g/dL (33-37); MEAN CORPUSCULAR VOLUME 83.8 FL (80-90); MEAN PLATELET VOLUME 9.8 FL (7.4-12.2); RED BLOOD COUNT 4.51 10^6/uL (4.70-6.10)
[2018-04-25 05:23] LABS: BLOOD UREA NITROGEN 25 mg/dL (7-22); BUN/CREATININE RATIO 31.25 (6-20); CHOL/HDL RATIO 3.62 RATIO (0-4.0); SERUM ALBUMIN 2.7 g/dL (3.5-4.8); SERUM CHOLESTEROL 87 mg/dL (120-200)
[2018-04-25 05:33] LABS: NEUTROPHILS % (MANUAL) 66 % (50-80); PLATELET MORPHOLOGY COMMENT SEE COMMENTS (NORM); RBC MORPHOLOGY COMMENT NORMAL MORPHOLOGY (NORM); WBC MORPHOLOGY COMMENT SEE COMMENTS (NORM)
[2018-04-25 05:34] LABS: BAND NEUTROPHILS % 8 % (0-10); BASOPHILS % (MANUAL) 1 % (0-1); EOSINOPHILS % (MANUAL) 3 % (0-8); MONOCYTES % (MANUAL) 9 % (0-12)
[2018-04-25 05:47] LABS: LIPASE 1583 IU/L (23-300)
[2018-04-25] MEDS: HYDROCHLOROTHIAZIDE 25 MG TABLET PO SCH (07:30)
[2018-04-25] MEDS: Insulin Lispro Flexpen 300 UNIT/3 ML INSULN.PEN SUBCUT SCH ×4 (07:30→20:49)
[2018-04-25] MEDS: ASPIRIN 81 MG (BABY) CHEWABLE TABLET PO SCH (08:54)
[2018-04-25] MEDS: LISINOPRIL 10 MG TABLET PO SCH (08:55)
[2018-04-25] MEDS: ENOXAPARIN SODIUM 40 MG/0.4 ML SYRINGE SUBCUT SCH (08:55)
[2018-04-25] MEDS: PANTOPRAZOLE IV 40 MG VIAL IVP SCH (08:55)
--- NOTE | 2018-04-25 09:09 | PDOC(PROG) ---
Subjective Post Op Day: 7 Date and Time of Service: 04/25/2018 at 910 Interval History: Patient states that he is feeling better and having no abdominal pain. He is tolerating clear liquid diet. His white count is coming down but his lipase is 1500 Objective : Data - Labs CBC and BMP: 04/25/18 04:08 04/25/18 04:08 - Vital Signs Vital Signs and I&O: Vital Signs - Last Taken Temperature 97.2 F 04/25/18 04:42 Pulse Rate 78 04/25/18 07:36 Respiratory Rate 22 04/25/18 07:36 Blood Pressure 135/68 04/25/18 04:42 Pulse Ox 97 04/25/18 04:42 Intake and Output (24hr x 4 totals) 04/23/18 04/24/18 04/25/18 04/26/18 05:59 05:59 05:59 05:59 Intake Total 1623 / 1623 2859 / 2859 3497 / 3497 600 / 600 Balance 1623 / 1623 2859 / 2859 3497 / 3497 600 / 600 Objective : Exam - GI/Abdominal GI/Abdominal Exam: Normal Bowel Sounds, Non Tender, Non Distended, Soft Assessment and Plan - Patient Problems (1) Acute gallstone pancreatitis Current Visit: Yes Status: Acute Code(s): K85.10 - Biliary acute pancreatitis without necrosis or infection - Assessment / Plan Additional Assessment/Plan Details: At this point I continue to increase his diet as tolerated and wean his TPN.
--- NOTE | 2018-04-25 17:51 | PDOC(PROG) ---
Interval History: Patient is doing well has no pain tolerating clear liquids Objective : Data - Labs CBC and BMP: 04/25/18 04:08 04/25/18 11:26 Objective : Exam - General General Appearance: No Acute Distress, Cooperative - Respiratory Respiratory Exam: Clear to Auscultation - Bilaterally, Breathing Non Labored, Normal To Percussion, Normal to Percussion and Palpation - Cardiovascular Cardiovascular Exam: RRR, No Murmur, No Clicks, No Gallops, No Rubs, PMI Non- Displaced - GI/Abdominal GI/Abdominal Exam: Normal Bowel Sounds, Non Tender, Non Distended, Soft, No Masses, No Hepatomegaly, No Splenomegaly, No Organomegaly Assessment and Plan - Patient Problems (1) Acute pancreatitis Current Visit: Yes Status: Acute Code(s): K85.90 - Acute pancreatitis without necrosis or infection, unspecified Qualifiers: Pancreatitis type: biliary Acute pancreatitis complication: infected necrosis Qualified Code(s): K85.12 - Biliary acute pancreatitis with infected necrosis (2) Hypertension Current Visit: Yes Status: Chronic Code(s): I10 - Essential (primary) hypertension Qualifiers: Hypertension type: essential hypertension Qualified Code(s): I10 - Essential (primary) hypertension (3) Leukocytosis Current Visit: Yes Status: Acute Code(s): D72.829 - Elevated white blood cell count, unspecified Qualifiers: Leukocytosis type: leukemoid reaction Qualified Code(s): D72.823 - Leukemoid reaction (4) Renal failure Current Visit: Yes Status: Resolved Code(s): N19 - Unspecified kidney failure Qualifiers: Renal failure chronicity: acute Acute renal failure type: unspecified Qualified Code(s): N17.9 - Acute kidney failure, unspecified (5) Hypokalemia Current Visit: Yes Status: Acute Code(s): E87.6 - Hypokalemia (6) Gallbladder necrosis Current Visit: Yes Status: Acute Code(s): K81.0 - Acute cholecystitis - Assessment / Plan Additional Assessment/Plan Details: #1acute gallstone pancreatitistetanus post cholecystectomy C Dr. Jones's notes from yesterday he spoke to her general surgery in [place] and Dr. rico Bell continue TPN for 2 more days continue clear liquids repeat CAT scan next week evaluate for increased lipase this might increase the and number but if pain is not present at continue clears she understands we will be in the hospital for the next for 5 days at least considering his fluid collection with a repeat CAT scan next week case was discussed with Dr. rico Bell Elevated glucose continue sliding scale hemoglobin A1c within normal limits
[2018-04-25 19:28] LABS: Hematocrit [HCT] 39.3 % (42.0-52.0); Hemoglobin [HGB] 13.3 g/dL (14.0-18.0); MEAN CORPUSCULAR HEMOGLOBIN 28.5 PG (27-31); MEAN CORPUSCULAR HGB CONC 33.8 g/dL (33-37); MEAN CORPUSCULAR VOLUME 84.3 FL (80-90); MEAN PLATELET VOLUME 9.6 FL (7.4-12.2); RED BLOOD COUNT 4.66 10^6/uL (4.70-6.10)
[2018-04-25 19:35] LABS: BLOOD UREA NITROGEN 26 mg/dL (7-22); SERUM ALBUMIN 3.1 g/dL (3.5-4.8)
[2018-04-25] MEDS ORDERED: DEXTROSE 31 GM GEL PO PRN (19:38)
[2018-04-25] MEDS ORDERED: Glucagon Inj Vial 1 MG/ML VIAL IM PRN (19:38)
[2018-04-25] MEDS ORDERED: DEXTROSE 50%-WATER SYRINGE 50 ML SYRINGE IVP PRN (19:38)
[2018-04-25] MEDS: Simvastatin Tab 20 MG TAB PO SCH (20:28)
[2018-04-25] MEDS: Insulin Regular Inj 100 UNIT in Sodium Chloride 0.9% 99 ML IV SCH (20:29)
[2018-04-25] MEDS: Fat Emulsions Inj 20% 250 ML IV SCH (20:32)
[2018-04-25] MEDS: HYDROcodone-APAP 7.5 MG-325 MG TABLET PO PRN (20:35)
[2018-04-25] MEDS: HEPARIN 500 UNIT/5 ML SYRINGE FOR CENTRAL LINE IVP PRN (20:35)
[2018-04-26 04:55] LABS: Hematocrit [HCT] 37.8 % (42.0-52.0); Hemoglobin [HGB] 12.9 g/dL (14.0-18.0); MEAN CORPUSCULAR HEMOGLOBIN 28.9 PG (27-31); MEAN CORPUSCULAR HGB CONC 34.1 g/dL (33-37); MEAN CORPUSCULAR VOLUME 84.8 FL (80-90); MEAN PLATELET VOLUME 9.7 FL (7.4-12.2); RED BLOOD COUNT 4.46 10^6/uL (4.70-6.10)
[2018-04-26 05:07] LABS: BLOOD UREA NITROGEN 28 mg/dL (7-22); BUN/CREATININE RATIO 31.11 (6-20); SERUM ALBUMIN 2.9 g/dL (3.5-4.8)
[2018-04-26 05:32] LABS: LIPASE 2017 IU/L (23-300)
[2018-04-26 05:39] LABS: BAND NEUTROPHILS % 9 % (0-10); BASOPHILS % (MANUAL) 0 % (0-1); EOSINOPHILS % (MANUAL) 4 % (0-8); MONOCYTES % (MANUAL) 10 % (0-12); NEUTROPHILS % (MANUAL) 60 % (50-80); PLATELET MORPHOLOGY COMMENT SEE COMMENTS (NORM); RBC MORPHOLOGY COMMENT NORMAL MORPHOLOGY (NORM); WBC MORPHOLOGY COMMENT SEE COMMENTS (NORM)
[2018-04-26] MEDS: AA-Dext 5%-20%/Calcium/Lytes 1,000 ML PRIMARY IV SCH (05:55)
[2018-04-26] MEDS: Insulin Lispro Flexpen 300 UNIT/3 ML INSULN.PEN SUBCUT SCH (06:56)
[2018-04-26 08:27] VITALS: RESP 18
[2018-04-26] MEDS: ENOXAPARIN SODIUM 40 MG/0.4 ML SYRINGE SUBCUT SCH (09:05)
[2018-04-26] MEDS: ASPIRIN 81 MG (BABY) CHEWABLE TABLET PO SCH (09:05)
[2018-04-26] MEDS: LISINOPRIL 10 MG TABLET PO SCH (09:05)
[2018-04-26] MEDS ORDERED: INSULIN REGULAR, HUMAN 100 UNIT/1 ML - 3 ML ONE ×2 (09:39→10:09)
[2018-04-26] MEDS ORDERED: Sodium Chloride 0.9% 100 ML IV ONE ×2 (09:45→10:12)
[2018-04-26] MEDS: PANTOPRAZOLE IV 40 MG VIAL IVP SCH (09:51)
[2018-04-26] MEDS: Insulin Regular Inj 100 UNIT in Sodium Chloride 0.9% 99 ML IV SCH (10:25)
[2018-04-26] MEDS ORDERED: Meropenem Inj 1 GM in Sodium Chloride 0.9% 100 ML IV SCH (10:30)
--- NOTE | 2018-04-26 10:52 | DI ---
EXAM: CT Abdomen and Pelvis With Intravenous Contrast CLINICAL HISTORY: ITS.REASON pancreatitis Physician Notes: Tech Comments: TECHNIQUE: Axial computed tomography images of the abdomen and pelvis with intravenous contrast. COMPARISON: . FINDINGS: 5 mm left lower lobe nodule. If there are risk factors for malignancy, would recommend 12 month follow-up. Small right pleural effusion has decreased in the interval as has basilar atelectasis. Redemonstrated cholecystectomy. Since the prior examination, the common bile duct has decreased in caliber. However, there is still extensive peritoneal and retroperitoneal fluid, presumably reflecting proximal pancreatitis. Stable hypodensities in the pancreatic neck and head, which could reflect parenchymal pseudocyst. No worsening of glandular necrosis. Lower pole left renal hypodensity is too small to characterize, but most likely reflects a cyst. No hydronephrosis. The spleen and the adrenal glands are within normal limits. Fluid distended stomach. If there is vomiting, would consider a duodenal stricture from adjacent inflammation. No bowel perforation. Unremarkable appendix. Abdominal aortic atherosclerosis. Ectasia at the hiatus measuring 3.2 cm. Mild compression of the superior mesenteric vein due to adjacent fluid in the mesenteric root. However, no SMV occlusion. No acute fracture. IMPRESSION: Redemonstrated pancreatitis. Similar amount of fluid to prior. Improved extrahepatic biliary dilation. Fluid distended stomach. If there is vomiting, would consider inflammatory stricture of the duodenum. Ectasia of the aorta at the hiatus. 3.2 cm in diameter. Decrease in small right pleural effusion. 5 mm left lower lobe nodule. If there are risk factors for malignancy, would recommend 12 month follow-up.
--- NOTE | 2018-04-26 12:05 | DCSUMMARY ---
Hospitalization Summary Hospital Course: Final Discharge Diagnosis: Current Visit Problems Problem Status Onset Code Acute pancreatitis Acute K85.90 Hypertension Chronic I10 Leukocytosis Acute D72.829 Renal failure Resolved N19 Acute gallstone pancreatitis Acute K85.10 Hypokalemia Acute E87.6 Gallbladder necrosis Acute K81.0 Diagnostic Data, Laboratory Data, and Procedures of Signifigance: Abnormal Lab Results (Last 24 Hours) Range/Units 04/25/18 04/25/18 04/25/18 17:28 19:15 19:15 WBC (4.8-10.8) 10^3/uL 15.82 H RBC (4.70-6.10) 10^6/uL 4.66 L Hgb (14.0-18.0) g/dL 13.3 L Hct (42.0-52.0) % 39.3 L RDW Std Deviation (39-50) fL Plt Count (140-350) 10*3/uL 508 H Sodium (135-145) meq/L 129 L Chloride (98-112) meq/L 94 L Carbon Dioxide (23-33) meq/L 21 L BUN (7-22) mg/dL 26 H BUN/Creatinine Ratio (6-20) 32.50 H Glucose (78-110) mg/dL 500 H* 361 H AST (21-57) IU/L 110 H ALT (21-72) IU/L 105 H Alkaline Phosphatase (38-126) IU/L 360 H Albumin (3.5-4.8) g/dL 3.1 L Albumin/Globulin Ratio (1.3-2.0) mg/g 0.80 L Lipase (23-300) IU/L Range/Units 04/26/18 04/26/18 04:30 04:30 WBC (4.8-10.8) 10^3/uL 17.10 H RBC (4.70-6.10) 10^6/uL 4.46 L Hgb (14.0-18.0) g/dL 12.9 L Hct (42.0-52.0) % 37.8 L RDW Std Deviation (39-50) fL 38.5 L Plt Count (140-350) 10*3/uL 505 H Sodium (135-145) meq/L 128 L Chloride (98-112) meq/L 93 L Carbon Dioxide (23-33) meq/L BUN (7-22) mg/dL 28 H BUN/Creatinine Ratio (6-20) 31.11 H Glucose (78-110) mg/dL 358 H AST (21-57) IU/L 87 H ALT (21-72) IU/L 101 H Alkaline Phosphatase (38-126) IU/L 327 H Albumin (3.5-4.8) g/dL 2.9 L Albumin/Globulin Ratio (1.3-2.0) mg/g 0.80 L Lipase (23-300) IU/L 2017 H* History and Physical pertinent to Admission: This is a 50-year-old gentleman who has a one-day history of epigastric abdominal pain. Patient came in an elevated lipase around 7000. His count of 14,000 since admission. Patient states that he feels better but he still having epigastric tenderness. Patient had a CT scan that showed inflammation the head of the pancreas but no dominant mass. Ultrasound showed cholelithiasis with a contracted gallbladder. Issues white count was 22,000 now down to 14,000. Course of Hospitalization: Is a very nice 50-year-old gentleman who presents to the ER with abdominal pain and vomiting diagnosed with the pancreatitis with lipase at around 7000 down from 14,[address] scan showed inflammation of the head of the pancreas and ultrasound showed cholelithiasis with a contracted gallbladder. Patient underwent laparoscopic cholecystectomy cystectomy with cholangiogram. Showed a necrotic gallbladder patient's white count elevated at 22,000 on meropenem 1 g IV every 8. Pain was stable patient on TPN and clears his pain started to increase as well as his lipase [id number] range as well as his LFTs and alkaline phosphatase repeat CT scan showed the possible pseudocysts and the increased amounts of fluids around the head of the pancreas and also in the stomach which is different from the previous CT also sugars went up to the 500 range had to use a insulin drip to get him stabilized. TPN is now stopped I discussed the case with Dr. Nunes which accepted the patient in transfer and agrees with the need of going to higher level care for his complicated pancreatitis course. I discussed this with the patient which also agreed and family members he is stable hemodynamically and will be transferred via ambulance please see CT scan reading below On the date of discharge, the patient was examined: Gen.: No acute distress, alert, nontoxic Heart: Regular rate and rhythm, no murmurs, clicks, gallops, or rubs Lungs: Clear to auscultation bilaterally, breathing is nonlabored Abdomen/GI: Normal tones on auscultation, soft, mild tenderness left lower quadrant and epigastric area Musculoskeletal/extremities: No clubbing, cyanosis , or edema Vitals reviewed and are listed below Vital Signs (24 hrs) Temp Pulse Pulse Resp BP Pulse Ox 04/26/18 08:25 97.2 F 93 18 131/76 97 04/26/18 06:37 68 04/26/18 06:36 16 04/26/18 04:45 97.1 F 97 16 143/78 97 04/26/18 01:00 97.4 F 99 20 142/75 95 04/25/18 20:30 97.5 F 86 16 152/76 97 04/25/18 19:00 20 04/25/18 16:41 98.2 F 87 20 156/76 98 04/25/18 13:00 97.3 F 80 20 140/72 95 Assessment and Plan: 1. As per discharge assessments above 2. Disposition: Transfer to [facility] under Dr. Dubois care and acceptance 3. Condition on discharge, stable and improved. 4. Diet: regular diet 5. Activities: resume normal activities 6. Follow-Up: 1. PCP 2. 7. Medications at the Time of Discharge: Active Medications Generic Name Dose Route Start Last Admin Trade Name Freq PRN Reason Stop Dose Admin Hydrocodone Bitart/Acetaminophen 1 - 2 tab 04/19/18 09:43 04/25/18 20:35 [place] 7.5/325 Tab PO 1 tab Q4H PRN Administration Abdominal Cramps / Pain Aspirin 81 mg 04/21/18 09:00 04/26/18 09:05 Aspirin Chewable Tab PO 81 mg DAILY IVAN Administration Dextrose 30 - 40 ml 04/23/18 16:56 Dextrose 50% Inj IVP Q15M PRN BG < 70 unable to take oral Dextrose 30 - 40 ml 04/25/18 19:38 Dextrose 50% Inj IVP Q15M PRN BG < 70 unable to take oral Enoxaparin Sodium 40 mg 04/23/18 09:00 04/26/18 09:05 Lovenox Inj SUBCUT 40 mg DAILY IVAN Administration Glucagon 1 mg 04/23/18 16:56 Glucagen IM ONCE PRN BG < 70 NPO & NO IV Glucagon 1 mg 04/25/18 19:38 Glucagen IM ONCE PRN BG < 70 NPO & NO IV Glucose 15 - 20 gm 04/23/18 16:56 Insta-Glucose Gel PO Q15M PRN BG < 70 Glucose 15 - 20 gm 04/25/18 19:38 Insta-Glucose Gel PO Q15M PRN BG < 70 Heparin Sodium (Porcine) 300 - 500 unit 04/22/18 12:45 04/25/18 20:35 Heparin Lock Inj (For Central Line) IVP 500 unit BID PRN Administration Flush Hydromorphone HCl 2 mg 04/15/18 19:03 04/19/18 04:32 Dilaudid Inj IVP 2 mg Q4H PRN Administration Pain Insulin Human Regular 100 unit 100 mls @ 6.34 mls/hr 04/25/18 19:45 04/26/18 10:25 / Sodium Chloride IV 0.18 unit/kg/hr .TITRATE IVAN 11.42 mls/hr Administration Protocol 0.1 UNIT/KG/HR Meropenem 1 gm/ Sodium 100 mls @ 200 mls/hr 04/26/18 10:30 04/26/18 11:16 Chloride IV 200 mls/hr Q8H IVAN Administration Insulin Human Lispro 0 - 14 unit 04/23/18 21:00 04/26/18 06:56 Humalog Flexpen Inj SUBCUT Not Given AC HS IVAN Protocol Lidocaine HCl 0.5 ml 04/15/18 18:53 Lidocaine Buffered Inj SUBD ONCE PRN IV Starts Lisinopril 20 mg 04/20/18 09:00 04/26/18 09:05 Prinivil PO 20 mg DAILY IVAN Administration Ondansetron HCl 4 mg 04/16/18 01:23 04/16/18 05:23 Zofran Inj IVP 4 mg Q4H PRN Administration NAUSEA / VOMITING Pantoprazole Sodium 40 mg 04/23/18 09:00 04/26/18 09:51 Protonix Inj IVP 40 mg DAILY IVAN Administration Simvastatin 20 mg 04/19/18 21:00 04/25/18 20:28 Zocor PO 20 mg BEDTIME IVAN Administration 8. Time, care, counseling and coordination of care for this discharge is greater than 30 minutes. [facility] [place] [id number] PH: DD: [phone] FAX: [phone] ~DIAGNOSTIC IMAGING REPORT~ Patient: CARLOS LLANES : 1960 Sex: M Age: 58 Exam Name: CT Abdomen/Pelvis W Contrast Exam Date: 04/26/18 Report # : [id number] CPT Code: 98177 EMR/MR #: [id number] Ordering: CONSTANCE CARREON Admiting: DIANE LEIGH MD. Primary: NONE,NONE Attending: DIANE LEIGH MD. Signed EXAM: CT Abdomen and Pelvis With Intravenous Contrast CLINICAL HISTORY: ITS.REASON pancreatitis Physician Notes: Tech Comments: TECHNIQUE: Axial computed tomography images of the abdomen and pelvis with intravenous contrast. COMPARISON: . FINDINGS: 5 mm left lower lobe nodule. If there are risk factors for malignancy, would recommend 12 month follow-up. Small right pleural effusion has decreased in the interval as has basilar atelectasis. Redemonstrated cholecystectomy. Since the prior examination, the common bile duct has decreased in caliber. However, there is still extensive peritoneal and retroperitoneal fluid, presumably reflecting proximal pancreatitis. Stable hypodensities in the pancreatic neck and head, which could reflect parenchymal pseudocyst. No worsening of glandular necrosis. Lower pole left renal hypodensity is too small to characterize, but most likely reflects a cyst. No hydronephrosis. The spleen and the adrenal glands are within normal limits. Fluid distended stomach. If there is vomiting, would consider a duodenal stricture from adjacent inflammation. No bowel perforation. Unremarkable appendix. Abdominal aortic atherosclerosis. Ectasia at the hiatus measuring 3.2 cm. Mild compression of the superior mesenteric vein due to adjacent fluid in the mesenteric root. However, no SMV occlusion. No acute fracture. IMPRESSION: Redemonstrated pancreatitis. Similar amount of fluid to prior. Improved extrahepatic biliary dilation. Fluid distended stomach. If there is vomiting, would consider inflammatory stricture of the duodenum. Ectasia of the aorta at the hiatus. 3.2 cm in diameter. Decrease in small right pleural effusion. 5 mm left lower lobe nodule. If there are risk factors for malignancy, would recommend 12 month follow-up. Dictated By: Jaylan Monge MD Signed By: 04/26/18 1052 Jaylan Monge MD Exam - Vitals Vital Signs: Vital Signs Temperature 97.2 F Temperature Source Temporal Artery Scan Pulse Rate [Pulse Oximeter 93 Left] Pulse Rate [Pulse Oximeter] 68 Pulse Rate 97 Respiratory Rate 18 Blood Pressure [Left Arm] 131/76 Blood Pressure [Left Arm] 152/76 Blood Pressure 153/92 Pulse Ox 97 Oxygen Flow Rate 2 Oxygen Delivery Method Room Air Height 5 ft 5 in Weight 139 lb 9.6 oz Patient Problems - Patient Problem List (1) Acute pancreatitis Current Visit: Yes Status: Acute Code(s): K85.90 - Acute pancreatitis without necrosis or infection, unspecified Qualifiers: Pancreatitis type: biliary Acute pancreatitis complication: infected necrosis Qualified Code(s): K85.12 - Biliary acute pancreatitis with infected necrosis Category: Medical (2) Hypertension Current Visit: Yes Status: Chronic Code(s): I10 - Essential (primary) hypertension Qualifiers: Hypertension type: essential hypertension Qualified Code(s): I10 - Essential (primary) hypertension Category: Medical (3) Leukocytosis Current Visit: Yes Status: Acute Code(s): D72.829 - Elevated white blood cell count, unspecified Qualifiers: Leukocytosis type: leukemoid reaction Qualified Code(s): D72.823 - Leukemoid reaction Category: Medical (4) Renal failure Current Visit: Yes Status: Resolved Code(s): N19 - Unspecified kidney failure Qualifiers: Renal failure chronicity: acute Acute renal failure type: unspecified Qualified Code(s): N17.9 - Acute kidney failure, unspecified Category: Medical (5) Hypokalemia Current Visit: Yes Status: Acute Code(s): E87.6 - Hypokalemia Category: Medical (6) Gallbladder necrosis Current Visit: Yes Status: Acute Code(s): K81.0 - Acute cholecystitis Category: Medical
[2018-04-26 12:49] VITALS: BP 113/75; TEMP 97.3; O2SAT 99
== END 2018-04-26 13:28 | disposition short-term general hospital (02) | DRG 418 ==
LOC: ER 14:54 → MED/SURG 18:10 → OPS 04-18 09:50 → MED/SURG 04-18 13:15
PROVIDERS: ADMIT Internal Medicine; ATTEND Internal Medicine